=== PATIENT | female | born 1970 | race Caucasian/White ===

== ENCOUNTER 2022-06-30 20:30 | Inpatient (IN) ==
[2022-06-30 21:44] LABS: Partial Thromboplastin Ratio 0.9; Partial Thromboplastin Time 23.8 Seconds (21.0-31.0); Prothrombin Time 10.3 Seconds (9.0-12.0)
[2022-06-30 21:45] LABS: Albumin Globulin Ratio 1.2 (0.9-2); Albumin Level 3.9 gm/dl (3.4-5.0); BUN Creatinine Ratio 23.2 (10-20); Bilirubin,Total 0.5 mg/dl (0.2-1.0); Calcium 9.6 mg/dl (8.5-10.1); Creatinine Clr Calc Pharmacy 68.4 ml/min; Est GFR (African American) 64.9 ml/min; Globulin 3.2 gm/dl (2.5-4.0); Magnesium 1.6 mg/dl (1.7-2.4); Potassium 4.6 mmol/L (3.5-5.1); Total Protein 7.1 gm/dl (6.0-8.3)
[2022-06-30 22:01] LABS: Hematocrit (blood only) 33.5 % (34.1-44.9); Hemoglobin 12.2 g/dl (12.0-16.0); Mean Corpuscular Hemoglobin 36.6 pg (25.0-34.0); Mean Corpuscular Hgb Conc 36.4 g/dL (32.0-36.0); Mean Corpuscular Volume 100.6 fL (80.0-100.0); Mean Platelet Volume 10.7 fL (9.4-12.3); Platelet Count 389 K/uL (130-400); RDW Coefficient of Variation 17.5 % (11.5-14.5); RDW Standard Deviation 51.5 fL (36.4-46.3); Red Blood Count 3.33 M/uL (3.93-5.22); White Blood Count 49.63 K/ul (4.8-10.8)
[2022-06-30] MEDS ORDERED: VANCOMYCIN HCL 2,000 MG in SODIUM CHLORIDE 0.9% 500 ML IV ONE (22:08)
[2022-06-30] MEDS ORDERED: CEFEPIME 2,000 MG/20 ML VIAL IV STA (22:08)
[2022-06-30] MEDS ORDERED: VANCOMYCIN CONSULT ACTIVE PRN (22:08)
[2022-06-30 22:47] LABS: Basophils # (auto) 0.27 K/uL (0-0.2); Basophils % (auto) 0.5 %; Eosinophils # (auto) 0.12 K/uL (0-0.50); Eosinophils % (auto) 0.2 %; Immature Granulocytes # (auto) 0.15 K/uL (0.00-0.02); Immature Granulocytes % (auto) 0.3 %; Lymphocytes # (auto) 39.75 K/uL (1.2-3.4); Lymphocytes % (auto) 80.1 %; Monocytes # (auto) 1.17 K/uL (0.24-0.82); Monocytes % (auto) 2.4 %; Neutrophils # (auto) 8.17 K/uL (1.4-6.5); Neutrophils % (auto) 16.5 %
[2022-06-30] MEDS ORDERED: SODIUM CHLORIDE 0.9% 1000ML 500 ML IV ONE (23:00)
[2022-06-30] MEDS ORDERED: SODIUM CHLORIDE 0.9% 1000ML 1,000 ML IV STA (23:00)
[2022-06-30] MEDS ORDERED: OPTIRAY 300 500mL IV ONE (23:13)
[2022-06-30 23:30] LABS: Adenovirus PCR Not Detected (NotDetected); Bordetella parapertussis PCR Not Detected (NotDetected); Bordetella pertussis PCR Not Detected (NotDetected); Chlamydia pneumoniae PCR Not Detected (NotDetected); Coronavirus 229E PCR Not Detected (NotDetected); Coronavirus CoV-2 (COVID19)PCR Not Detected (NotDetected); Coronavirus HKU1 PCR Not Detected (NotDetected); Coronavirus NL63 PCR Not Detected (NotDetected); Coronavirus OC43PCR Not Detected (NotDetected); Human Metapneumovirus PCR Not Detected (NotDetected); Influenza A PCR Not Detected (NotDetected); Influenza B PCR Not Detected (NotDetected); Mycoplasma pneumoniae PCR Not Detected (NotDetected); Parainfluenza Virus 1 PCR Not Detected (NotDetected); Parainfluenza Virus 2 PCR Not Detected (NotDetected); Parainfluenza Virus 3 PCR Not Detected (NotDetected); Parainfluenza Virus 4 PCR Not Detected (NotDetected); Respiratory Syncytial VirusPCR Not Detected (NotDetected); Rhinovirus/Enterovirus PCR Not Detected (NotDetected)
--- NOTE | 2022-06-30 23:56 | Emergency Department Note ---
Impression & Plan Sepsis, Acidosis, lactic, Acute upper abdominal pain, Shortness of breath ED Provider Note INFORMANT: Patient ED PROVIDER(S): Dino Gloria MD CHIEF COMPLAINT: Abnormal labs PLAN: Disposition: Admitted Condition: Guarded Outpatient prescription management: none Referral: None MEDICAL DECISION MAKING: Patient presented with the complaints noted below. A work-up was initiated. Patient had blood work and blood cultures obtained. Chest x-ray was unremarkable except for's and pleural effusions. COVID ECG showed some tachycardia. The patient had a marked leukocytosis on CBC of 49,000. Lactate was elevated. This is concerning for sepsis in light of this reported E. coli infection. Patient was given cefepime and vancomycin. Due to the swelling and shortness of breath fluids were gently administered until troponin and BNP were back and negative. Patient was given an additional saline bolus. Repeat lactate was improving. Patient did not have any hypotension to suggest septic shock. CT scan of the chest abdomen pelvis was performed. Read is currently pending via [employer]. Patient will need further management in the hospital. Consultation was made with Dr. Chavis hospitalist service. Patient was evaluated in the ER for further management. Triage Nursing notes reviewed and agree them. Vital Signs: reviewed and remarkable for tachycardia Differential diagnosis: Infection, dehydration, metabolic abnormality, hypo/hyperglycemia, electrolyte disturbance, anemia, hypoxia, cardiac sources, intracerebral event, toxicologic, neurologic, as well as other pathologies. Diagnostics interpreted by me: ECG: Sinus tachycardia at 113 bpm. Low voltage QRS. Left atrial enlargement. No ST elevation or depression. No PVCs. Cardiac Monitoring: Cardiac monitoring ordered by me: The patient was placed on continuous cardiac monitoring and observed. It revealed a sinus tachycardic rhythm at 102 beats per minute without ectopy or evidence of dysrhythmia. Imaging studies: Chest x-ray as noted above. CT imaging pending. HPI: The patient 51-year-old transgender female who presents to the Emergency Room with complaints of abnormal labs. This started over the last 2 weeks and symptoms are worsening. The patient also notes the following associated symptoms, shortness of breath, leg swelling, right upper abdominal pain, abdominal distention, dizziness, lack of appetite, irregular bowel movements. Patient notes that x-rays and lab work done as an outpatient. Patient was told that there is fluid in the patient's lung and the white blood cell count was elevated. Patient also had a swab during a vaginal examination and was found to have an E. coli infection. Patient states antibiotics were called in but does not know the name. The patient has found no relieving factors. Current pain is rated as 4/10. Pt denies LOC, headache, fevers, chills, diaphoresis, visual changes, neck pain, chest pain, nausea, vomiting, back pain, melena, hematochezia, urinary symptoms, numbness, weakness, lymphadenopathy, rash, or other complaints. ROS: See above HPI for pertinent positives & negatives. A total of 10 systems reviewed and were otherwise negative. 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 Oropharynx unremarkable. EYES: Normal conjunctiva. Sclera non-icteric. NECK: Inspection normal. Non-tender. Supple. No nuchal rigidity. FROM. No masses. RESPIRATORY: Clear to auscultation. No wheezes. No rales. Normal respiratory effort. CARDIAC: Tachycardic rate. Normal rhythm. No murmurs. No rubs. Extremities warm and well perfused. Pulses equal. No JVD. GI: Soft, mildly distended. Upper tenderness to palpation. No rebound or guarding. No masses. RECTAL: Deferred. MUSCULOSKELETAL: Atraumatic. Chest examination reveals no tenderness. The back is symmetrical on inspection without obvious abnormality. There is no CVA tenderness to palpation. No joint edema. LOWER EXTREMITIES: Calves are equal size bilaterally and non-tender. 2+ edema. No discoloration. NEURO: Normal sensorium. No sensory or motor deficits noted. SKIN: No rash or jaundice noted. Dino Gloria MD Past Med/Surg History Social History Smoking Status: Former smoker Feels Safe at Home: Yes Allergies Allergies Allergy/AdvReac Type Severity Reaction Status Date / Time No Known Allergies Allergy Unverified 06/30/22 23:00 Home Meds Home Medications Medication Instructions Recorded Confirmed Estradiol Injection 100mg/5ml 0.3 ml IM WK 06/30/22 06/30/22 ciprofloxacin HCl 500 mg tablet 500 mg PO Q12 06/30/22 06/30/22 lisinopril 40 mg tablet 40 mg PO QAM 06/30/22 06/30/22 ondansetron 4 mg disintegrating 4 mg PO Q6 PRN Nausea And Vomiting 06/30/22 06/30/22 tablet Results & Data (ED) Vital Signs Vital Signs - 24 hr 06/30/22 20:37 06/30/22 22:25 06/30/22 22:30 Temperature 36.6 C Temperature Source Oral Pulse Rate 107 H Pulse Rate [Right Finger] 102 H Respiratory Rate 18 26 H Respiratory Effort / Characteristics Non-Labored Spontaneous Respiratory Depth Normal Blood Pressure 175/108 H Blood Pressure [Right Arm] 168/102 H Blood Pressure Mean 130 Blood Pressure Mean [Right Arm] 124 Pulse Oximetry 96 95 94 Oxygen Delivery Method Room Air Room Air Room Air Sepsis Recent Fever Within 48 Hours No Sepsis New/Unexplained Change in Mental Status No Sepsis Action Taken by Nursing No Action Required 06/30/22 23:42 Temperature Temperature Source Pulse Rate Pulse Rate [Right Finger] Respiratory Rate 18 Respiratory Effort / Characteristics Non-Labored Spontaneous Respiratory Depth Blood Pressure Blood Pressure [Right Arm] Blood Pressure Mean Blood Pressure Mean [Right Arm] Pulse Oximetry 96 Oxygen Delivery Method Room Air Sepsis Recent Fever Within 48 Hours Sepsis New/Unexplained Change in Mental Status Sepsis Action Taken by Nursing Laboratory Data Result diagrams: 06/30/22 20:45 06/30/22 20:45 Lab Results 06/30/22 06/30/22 06/30/22 Range/Units 20:45 20:45 20:45 WBC 49.63 H* (4.8-10.8) K/ul RBC 3.33 L (3.93-5.22) M/uL Hgb 12.2 (12.0-16.0) g/dl Hct 33.5 L (34.1-44.9) % MCV 100.6 H (80.0-100.0) fL MCH 36.6 H (25.0-34.0) pg MCHC 36.4 H (32.0-36.0) g/dL RDW Std Deviation 51.5 H (36.4-46.3) fL RDW Coeff of Diane 17.5 H (11.5-14.5) % Plt Count 389 (130-400) K/uL MPV 10.7 (9.4-12.3) fL Immature Gran % (Auto) 0.3 % Neut % (Auto) 16.5 % Lymph % (Auto) 80.1 % [place] % (Auto) 2.4 % Eos % (Auto) 0.2 % Baso % (Auto) 0.5 % Neut # (Auto) 8.17 H (1.4-6.5) K/uL Lymph # (Auto) 39.75 H (1.2-3.4) K/uL [place] # (Auto) 1.17 H (0.24-0.82) K/uL Eos # (Auto) 0.12 (0-0.50) K/uL Baso # (Auto) 0.27 H (0-0.2) K/uL Immature Gran # (Auto) 0.15 H (0.00-0.02) K/uL PT 10.3 (9.0-12.0) Seconds INR 1.0 (0.9-1.1) APTT 23.8 (21.0-31.0) Seconds PTT Ratio 0.9 Sodium 135 L (136-145) mmol/L Potassium 4.6 (3.5-5.1) mmol/L Chloride 98 (98-107) mmol/L Carbon Dioxide 22 (21-32) mmol/L Anion Gap 15 H (3-11) BUN 26 H (6-23) mg/dl Creatinine 1.12 (0.6-1.2) mg/dl Est Cr Clr Drug Dosing 68.4 ml/min Est GFR ( Amer) 64.9 ml/min Est GFR (Non-Af Amer) 56.0 ml/min BUN/Creatinine Ratio 23.2 H (10-20) Glucose 85 (70-99(Fasting)) mg/dl Lactate (0.4-2.0) mmol/L Calcium 9.6 (8.5-10.1) mg/dl Magnesium 1.6 L (1.7-2.4) mg/dl Total Bilirubin 0.5 (0.2-1.0) mg/dl AST 38 (13-39) U/L ALT 14 (7-52) U/L Alkaline Phosphatase 68 (34-104) U/L Troponin I High Sens (0-14) pg/ml B-Natriuretic Peptide (0-100) pg/ml Total Protein 7.1 (6.0-8.3) gm/dl Albumin 3.9 (3.4-5.0) gm/dl Globulin 3.2 (2.5-4.0) gm/dl Albumin/Globulin Ratio 1.2 (0.9-2) Adenovirus (PCR) (NotDetected) B. pertussis DNA (PCR) (NotDetected) B.parapertussis DNA PCR (NotDetected) C. pneumoniae DNA (PCR) (NotDetected) Coronavirus OC43 (PCR) (NotDetected) Coronavirus HKU1 (PCR) (NotDetected) Coronavirus 229E (PCR) (NotDetected) SARS-CoV-2 (PCR) (NotDetected) Coronavirus NL63 (PCR) (NotDetected) Human Metapneumovir PCR (NotDetected) Influenza Type A (PCR) (NotDetected) Influenza Type B (PCR) (NotDetected) M. pneumoniae (PCR) (NotDetected) Parainfluenza 1 (PCR) (NotDetected) Parainfluenza 2 (PCR) (NotDetected) Parainfluenza 3 (PCR) (NotDetected) Parainfluenza 4 (PCR) (NotDetected) RSV (PCR) (NotDetected) Entero/Rhino (PCR) (NotDetected) 06/30/22 06/30/22 06/30/22 Range/Units 22:24 22:24 23:08 WBC (4.8-10.8) K/ul RBC (3.93-5.22) M/uL Hgb (12.0-16.0) g/dl Hct (34.1-44.9) % MCV (80.0-100.0) fL MCH (25.0-34.0) pg MCHC (32.0-36.0) g/dL RDW Std Deviation (36.4-46.3) fL RDW Coeff of Diane (11.5-14.5) % Plt Count (130-400) K/uL MPV (9.4-12.3) fL Immature Gran % (Auto) % Neut % (Auto) % Lymph % (Auto) % [place] % (Auto) % Eos % (Auto) % Baso % (Auto) % Neut # (Auto) (1.4-6.5) K/uL Lymph # (Auto) (1.2-3.4) K/uL [place] # (Auto) (0.24-0.82) K/uL Eos # (Auto) (0-0.50) K/uL Baso # (Auto) (0-0.2) K/uL Immature Gran # (Auto) (0.00-0.02) K/uL PT (9.0-12.0) Seconds INR (0.9-1.1) APTT (21.0-31.0) Seconds PTT Ratio Sodium (136-145) mmol/L Potassium (3.5-5.1) mmol/L Chloride (98-107) mmol/L Carbon Dioxide (21-32) mmol/L Anion Gap (3-11) BUN (6-23) mg/dl Creatinine (0.6-1.2) mg/dl Est Cr Clr Drug Dosing ml/min Est GFR ( Amer) ml/min Est GFR (Non-Af Amer) ml/min BUN/Creatinine Ratio (10-20) Glucose (70-99(Fasting)) mg/dl Lactate 4.7 H* (0.4-2.0) mmol/L Calcium (8.5-10.1) mg/dl Magnesium (1.7-2.4) mg/dl Total Bilirubin (0.2-1.0) mg/dl AST (13-39) U/L ALT (7-52) U/L Alkaline Phosphatase (34-104) U/L Troponin I High Sens 7.4 (0-14) pg/ml B-Natriuretic Peptide (0-100) pg/ml Total Protein (6.0-8.3) gm/dl Albumin (3.4-5.0) gm/dl Globulin (2.5-4.0) gm/dl Albumin/Globulin Ratio (0.9-2) Adenovirus (PCR) Not Detected (NotDetected) B. pertussis DNA (PCR) Not Detected (NotDetected) B.parapertussis DNA PCR Not Detected (NotDetected) C. pneumoniae DNA (PCR) Not Detected (NotDetected) Coronavirus OC43 (PCR) Not Detected (NotDetected) Coronavirus HKU1 (PCR) Not Detected (NotDetected) Coronavirus 229E (PCR) Not Detected (NotDetected) SARS-CoV-2 (PCR) Not Detected (NotDetected) Coronavirus NL63 (PCR) Not Detected (NotDetected) Human Metapneumovir PCR Not Detected (NotDetected) Influenza Type A (PCR) Not Detected (NotDetected) Influenza Type B (PCR) Not Detected (NotDetected) M. pneumoniae (PCR) Not Detected (NotDetected) Parainfluenza 1 (PCR) Not Detected (NotDetected) Parainfluenza 2 (PCR) Not Detected (NotDetected) Parainfluenza 3 (PCR) Not Detected (NotDetected) Parainfluenza 4 (PCR) Not Detected (NotDetected) RSV (PCR) Not Detected (NotDetected) Entero/Rhino (PCR) Not Detected (NotDetected) 06/30/22 07/01/22 Range/Units 23:08 00:16 WBC (4.8-10.8) K/ul RBC (3.93-5.22) M/uL Hgb (12.0-16.0) g/dl Hct (34.1-44.9) % MCV (80.0-100.0) fL MCH (25.0-34.0) pg MCHC (32.0-36.0) g/dL RDW Std Deviation (36.4-46.3) fL RDW Coeff of Diane (11.5-14.5) % Plt Count (130-400) K/uL MPV (9.4-12.3) fL Immature Gran % (Auto) % Neut % (Auto) % Lymph % (Auto) % [place] % (Auto) % Eos % (Auto) % Baso % (Auto) % Neut # (Auto) (1.4-6.5) K/uL Lymph # (Auto) (1.2-3.4) K/uL [place] # (Auto) (0.24-0.82) K/uL Eos # (Auto) (0-0.50) K/uL Baso # (Auto) (0-0.2) K/uL Immature Gran # (Auto) (0.00-0.02) K/uL PT (9.0-12.0) Seconds INR (0.9-1.1) APTT (21.0-31.0) Seconds PTT Ratio Sodium (136-145) mmol/L Potassium (3.5-5.1) mmol/L Chloride (98-107) mmol/L Carbon Dioxide (21-32) mmol/L Anion Gap (3-11) BUN (6-23) mg/dl Creatinine (0.6-1.2) mg/dl Est Cr Clr Drug Dosing ml/min Est GFR ( Amer) ml/min Est GFR (Non-Af Amer) ml/min BUN/Creatinine Ratio (10-20) Glucose (70-99(Fasting)) mg/dl Lactate 4.0 H* (0.4-2.0) mmol/L Calcium (8.5-10.1) mg/dl Magnesium (1.7-2.4) mg/dl Total Bilirubin (0.2-1.0) mg/dl AST (13-39) U/L ALT (7-52) U/L Alkaline Phosphatase (34-104) U/L Troponin I High Sens (0-14) pg/ml B-Natriuretic Peptide 19 (0-100) pg/ml Total Protein (6.0-8.3) gm/dl Albumin (3.4-5.0) gm/dl Globulin (2.5-4.0) gm/dl Albumin/Globulin Ratio (0.9-2) Adenovirus (PCR) (NotDetected) B. pertussis DNA (PCR) (NotDetected) B.parapertussis DNA PCR (NotDetected) C. pneumoniae DNA (PCR) (NotDetected) Coronavirus OC43 (PCR) (NotDetected) Coronavirus HKU1 (PCR) (NotDetected) Coronavirus 229E (PCR) (NotDetected) SARS-CoV-2 (PCR) (NotDetected) Coronavirus NL63 (PCR) (NotDetected) Human Metapneumovir PCR (NotDetected) Influenza Type A (PCR) (NotDetected) Influenza Type B (PCR) (NotDetected) M. pneumoniae (PCR) (NotDetected) Parainfluenza 1 (PCR) (NotDetected) Parainfluenza 2 (PCR) (NotDetected) Parainfluenza 3 (PCR) (NotDetected) Parainfluenza 4 (PCR) (NotDetected) RSV (PCR) (NotDetected) Entero/Rhino (PCR) (NotDetected) Administered Medications Discontinued Medications Vancomycin HCl 2,000 mg/ (Sodium Chloride) 540 mls @ 200 mls/hr IV NOW ONE Stop: 07/01/22 00:49 Last Admin: 07/01/22 00:07 Dose: 200 mls/hr Documented By: STEVE Cefepime HCl (Maxipime) 2,000 mg in 20 mls @ 5 mls/min IV NOW STA; Protocol Stop: 06/30/22 22:11 Last Admin: 06/30/22 22:36 Dose: 5 mls/min Documented By: DESTIN Sodium Chloride (Nss 1000ml) 500 mls @ 999 mls/hr IV .Q31M ONE Stop: 06/30/22 23:30 Last Infusion: 07/01/22 00:38 Dose: 0 mls/hr Documented By: Admin: 07/01/22 00:06 Dose: 999 mls/hr Documented By: STEVE Ioversol (Optiray 300 500ml) 111 ml IV ONCE ONE Stop: 06/30/22 23:14 Last Admin: 06/30/22 23:13 Dose: 111 ml Documented By: DARCIE Discharge Plan Visit Data Chief Complaint: Referred by Doctor Stated Complaint: SOB, REF BY , FLUID IN LUNGS ED Provider: Dino Gloria Discharge Problem: Sepsis, Acidosis, lactic, Acute upper abdominal pain, Shortness of breath Forms Stand Alone Forms: My [employer] Prescriptions Prescriptions: No Action ciprofloxacin HCl 500 mg tablet 500 mg PO Q12 Rx Instructions: ordered 06/20/22 take for 10 days lisinopril 40 mg Tablet 40 mg PO QAM ondansetron 4 mg tablet,disintegrating 4 mg PO Q6 PRN (Reason: Nausea And Vomiting) Estradiol Injection 100mg/5ml 0.3 ml IM WK Referrals Referrals: PCP,NO [Primary Care Provider] -
[2022-07-01] MEDS ORDERED: SODIUM CHLORIDE 0.9% 1000ML 1,000 ML IV ONE (00:59)
--- NOTE | 2022-07-01 03:33 | History and Physical Report ---
DATE OF ADMISSION: 07/01/2022. CHIEF COMPLAINT: Dizziness, weakness. HISTORY OF PRESENT ILLNESS: A 51-year-old transgender male to female status post breast implants and vaginoplasty about a year ago, history of hypertension, who comes because of not feeling well, fatigued, weak, dizziness, nausea, shortness of breath going on for a couple of weeks, progressively getting worse, so she came here. She is hemodynamically stable. White count is 49. She follows at [place]. Seems recent white count was 17. They did a vaginal swab which showed E. coli and was treated with antibiotics. She says she did not finish the course and looks like she is on Cipro. As she is not feeling well, she came here. Chest x-ray shows possible raised diaphragm on the right side. The patient is resting comfortably. She was able to speak in full sentence, but she complains of shortness of breath. She says she can walk about half a block. She has some swelling in the legs. Denies any headache, occasionally has neck pain. No blurred visions, no earache, no runny nose, no sore throat, no cough, no difficulty swallowing. Her appetite is down last few days. Denies any chest pain. Has nausea. No vomiting. After eating only a small amount of food, she feels full. Denies any abdominal pain. Somewhat constipated. No blood in the stools or black stools. Micturating okay. ALLERGIES: No known drug allergies. PAST MEDICAL HISTORY: As mentioned above. PAST SURGICAL HISTORY: Breast implants, vaginoplasty, tummy tuck. MEDICATIONS: The patient is on Cipro 500 mg p.o. b.i.d., estradiol injection IM weekly, lisinopril 40 mg p.o. daily, Zofran 4 mg p.o. q. 6 hours p.r.n. FAMILY HISTORY: Significant for mother has CHF. SOCIAL HISTORY: Remote history of smoking. Alcohol, drinks 3 times a week. No drug use. REVIEW OF SYSTEMS: As per HPI. Rest of the review of systems is negative. PHYSICAL EXAMINATION: GENERAL: The patient is of moderate build, not in acute distress. VITAL SIGNS: Temperature 36.6, pulse 94, respiratory rate 16, blood pressure 151/92, oxygen 96% on room air. HEENT: Pupils equal, round, and reactive to light. Oral mucosa moist. NECK: No JVD, no neck masses. CARDIOVASCULAR: S1 and S2 heard. Regular rate and rhythm. No murmur, no gallop. RESPIRATORY SYSTEM: Normal AP diameter. No accessory muscle use. No wheezing, no crackles. ABDOMEN: Soft, bowel sounds present. Somewhat stiff, nontender. MANAGER VALIDATION: Cranial nerves II-XII grossly intact, nonfocal. EXTREMITIES: Mild pedal edema present, no erythema seen. LABORATORY DATA: WBC 49.6, hemoglobin 12.2, hematocrit 33.5, platelets 389. PT 10.3, INR 1, APTT 23.8. Sodium 135, potassium 4.6, chloride 98, bicarbonate 22, BUN 26, creatinine 1.1, serum glucose 85. Lactate was 4.7, repeat is 4, calcium 9.6, magnesium 1.6, total bilirubin 0.5, AST 38, ALT 14, alkaline phosphatase 68. Troponin 1 high sensitivity 7.4. BNP 19. [employer] negative. IMAGING DATA: Chest x-ray, raised right-sided diaphragm. CT chest, no obvious PE, no right heart strain. Mediastinal lymphadenopathy, no loculated collection. Findings may represent an infectious phlegmon, a mediastinitis, a ruptured hemorrhagic mass, or infiltrative inflammatory or neoplastic process. Bilateral small pleural effusions. CT abdomen and pelvis with contrast, extensive infiltration of the mesenteric fat. No focal mass. No loculated collections. No enlarged lymph nodes. Elevated right hemidiaphragm. Posterior antecolic Silvana-en-Y gastric bypass. No bowel obstructions, no free air. EKG: Sinus tachycardia at a rate of 113, possible left atrial enlargement. ASSESSMENT AND PLAN: This 51-year-old female presents with shortness of breath, dizziness, weakness. 1. Shortness of breath, dizziness, weakness: Elevated lactic acid, elevated white count of 49.6. Lactate initially was 4.7, repeat is 4. Recently had vaginal swab that showed E. coli. ER has empirically started on vancomycin and cefepime, which will be continued. Follow the cultures.Ordered peripheral smear for leukocytosis and follow the results. Continue IV fluids. Closely monitor in tele floor. Follow the repeat lactic acid level. Follow the hemodynamics. Follow the final report of the CT of chest, and CT abdomen and pelvis. 2. Hypomagnesemia: Will replace. 3. Transgender, male to female. 4. History of hypertension: Continue on lisinopril withholding parameters. 5. Deep venous thrombosis prophylaxis: Will place her on Lovenox. DISPOSITION: Closely monitor in the tele floor. Level 1 full code. Expect to discharge home and follow up with family doctor. Job ID: [id number] [facility]
[2022-07-01] MEDS ORDERED: POLYETHYLENE (MIRALAX) 17 GM PACK PO PRN (04:57)
[2022-07-01] MEDS ORDERED: ACETAMINOPHEN 325 MG TAB PO PRN (04:57)
[2022-07-01] MEDS ORDERED: NITROGLYCERIN SL 0.4 MG/TAB TAB SL PRN (04:57)
[2022-07-01] MEDS: SODIUM CHLORIDE 0.9% 1000ML 1,000 ML IV SCH ×2 (05:50→20:52)
[2022-07-01] MEDS: MAGNESIUM SULFATE / D5W 1 GM/100 ML BAG IV SCH ×2 (05:50→07:50)
[2022-07-01 05:54] LABS: BUN Creatinine Ratio 24.2 (10-20); Calcium 8.5 mg/dl (8.5-10.1); Creatinine Clr Calc Pharmacy 80.6 ml/min; Est GFR (African American) 79.3 ml/min; Est GFR (Non-African American) 68.4 ml/min; Magnesium 1.6 mg/dl (1.7-2.4); Potassium 4.4 mmol/L (3.5-5.1)
[2022-07-01 06:18] LABS: Hematocrit (blood only) 32.3 % (34.1-44.9); Hemoglobin 10.9 g/dl (12.0-16.0); Mean Corpuscular Hemoglobin 33.6 pg (25.0-34.0); Mean Corpuscular Hgb Conc 33.7 g/dL (32.0-36.0); Mean Corpuscular Volume 99.7 fL (80.0-100.0); Mean Platelet Volume 10.2 fL (9.4-12.3); Nucleated RBC # (auto) 0.02 K/uL (0-0); Platelet Count 337 K/uL (130-400); RDW Coefficient of Variation 17.1 % (11.5-14.5); RDW Standard Deviation 51.2 fL (36.4-46.3); Red Blood Count 3.24 M/uL (3.93-5.22)
[2022-07-01 06:37] LABS: Basophils # (auto) 0.27 K/uL (0-0.2); Basophils % (auto) 0.6 %; Eosinophils # (auto) 0.19 K/uL (0-0.50); Eosinophils % (auto) 0.4 %; Immature Granulocytes # (auto) 0.13 K/uL (0.00-0.02); Immature Granulocytes % (auto) 0.3 %; Lymphocytes # (auto) 36.77 K/uL (1.2-3.4); Lymphocytes % (auto) 78.4 %; Monocytes # (auto) 1.33 K/uL (0.24-0.82); Monocytes % (auto) 2.8 %; Neutrophils # (auto) 8.21 K/uL (1.4-6.5); Neutrophils % (auto) 17.5 %; Rouleaux 1+
--- NOTE | 2022-07-01 06:58 | CT Scan Report ---
CHEST CTA for PULMONARY ARTERIES CT DOSE: HISTORY: Shortness of breath. TECHNIQUE: Multiaxial CT images of the chest were performed following the intravenous administration of contrast to evaluate the pulmonary arteries. Maximal intensity projection images were also obtaine d. A dose lowering technique was utilized adhering to the principles of ALARA. COMPARISON STUDY: None. FINDINGS: Please refer to same day abdomen and pelvis CT for further evaluation of the abdominal stru ctures. Normal caliber thoracic aorta with no evidence for dissection. The heart is normal in size. T here are small to moderate bilateral pleural effusions. There is mediastinal lymphadenopathy. Soft ti ssue thickening with lymphadenopathy within the anterior mediastinum and right cardiophrenic recess. Dominant lymph node measures 3.3 cm. This results in mild mass effect along the right heart. Normal c aliber esophagus. Suboptimal opacification of the pulmonary arteries due to the timing of contrast. H owever, no definite filling defects within the pulmonary arteries to suggest a pulmonary embolus. The re are mildly enlarged bilateral internal mammary lymph nodes. Bilateral breast implants are noted. N o suspicious lytic or blastic osseous lesions. There is mild elevation right hemidiaphragm. Linear de nsity within the right lower lobe favors compressive atelectasis from the elevated right hemidiaphrag m and pleural effusion. No pneumothorax. There is a punctate calcified granuloma within the left lowe r lobe. There is mild subsegmental atelectasis is seen within the left lower lobe. There are few punc bryant calcified granulomas within the right lower lobe. Partially calcified subcarinal lymph node. Mil dly enlarged distal paraesophageal lymph nodes are noted. IMPRESSION: 1. No evidence for pulmonary embolus. 2. Small to moderate bilateral pleural effusions with subsegmental atelectasis within the lung bases. 3. Mediastinal lymphadenopathy and internal mammary lymphadenopathy with abnormal soft tissue density within the mediastinum resulting in mild mass effect along the right heart border. This could repres ent infectious mediastinitis or neoplastic process. ACT 112: Negative or not required by law. Electronically signed by: Faustino Kaiser M.D. 07/01/2022 6:57 AM
--- NOTE | 2022-07-01 07:12 | CT Scan Report ---
ABDOMEN AND PELVIS CT WITH IV CONTRAST CT DOSE: 1397.28 mGy.cm HISTORY: Right abd pain, WBC 49K Cr 1.1 TECHNIQUE: Multiaxial CT images of the abdomen and pelvis were performed following the use of intrave nous contrast. A dose lowering technique was utilized adhering to the principles of ALARA. COMPARISON STUDY: None. FINDINGS: Please refer to same day chest CT for further evaluation of the lung bases. No pneumoperito neum. No pneumatosis. No suspicious lytic or blastic osseous lesions. There is a right L5 pars defect . There is diffuse subcutaneous edema with skin thickening within the anterior abdominal wall. Tiny f at-containing left inguinal hernia is noted. A 7.8 cm subcutaneous lipoma within the left gluteal reg ion. Mild bladder wall thickening. The uterus is surgically absent. Severe hepatic steatosis. No defi nite hepatic masses. The main portal vein is patent. The gallbladder, pancreas, spleen, and adrenal g lands unremarkable. There is moderate right perinephric fat stranding/soft tissue density. There are few right perinephric soft tissue nodules with the largest measuring 16 mm. The left kidney enhances normally. No hydronephrosis. There is bilateral urothelial thickening within the renal collecting sys tems and ureters. Status post gastric bypass. Trace ascites. There is a small peripheral enhancing fl uid collection within the mid pelvis best seen on image 415 which measures 4.7 x 1.9 cm. This could r epresent a small abscess. Multiple mildly thickened loops of large and small bowel seen throughout th e abdomen. No dilated loops of bowel to suggest an obstruction. The appendix is identified and fills with gas. This is normal in caliber. Small collection of gas within the right side the abdomen on siria ge 269 which is indeterminate but could be within a bowel loop. A small focus of extraluminal gas is not excluded. There are severe mesenteric fat stranding seen throughout the abdomen and pelvis. There is also mild mesenteric edema/fluid. There is thickening of the bilateral peritoneal linings. Findin gs suggest a severe peritonitis/mesenteritis. Elevated right hemidiaphragm. Mildly enlarged bilateral external iliac lymph nodes with the largest on the right measuring 1.5 cm. There are mildly enlarged gastrohepatic and upper retroperitoneal lymph nodes with the largest on the right measuring 2.0 cm b est seen on image 201. There is also severe omental fat stranding. IMPRESSION: 1. Severe fat stranding and edema seen throughout the mesentery as well as thickening of the periton eal linings and omentum. This could be due to a severe peritonitis/mesenteritis versus a neoplastic p rocess. 2. There is right greater the left perinephric fat stranding with a few small right perinephric nodul es as described above. Again, this could be due to a severe infectious process or possibly a neoplast ic process such as lymphoma. 3. Trace ascites. There is a small area of loculated fluid within the deep pelvis measuring 4.7 x 1.9 cm. This could represent a small developing abscess. 4. Multiple areas of mild bowel wall thickening involving the large and small bowel. This could be re active or represent a nonspecific enterocolitis. 5. Small focus of gas within the right side the abdomen which is indeterminate and could be within a loop of bowel. A small focus of extraluminal gas is not excluded. [address] follow-up recommen ded to ensure stability. 6. Severe hepatic steatosis. 7. Diffuse urothelial thickening within the renal collecting systems and ureters. 8. Please refer the same day chest CT for further evaluation of the lung bases. ACT 112: Negative or not required by law. Electronically signed by: Faustino Kaiser M.D. 07/01/2022 7:10 AM
[2022-07-01] MEDS: lisinopril 40 MG TAB PO SCH (07:57)
[2022-07-01] MEDS: ENOXAPARIN INJ 40 MG/0.4 ML SYR SQ SCH (07:57)
--- NOTE | 2022-07-01 08:06 | XRay Report ---
XR chest 1V portable HISTORY: Shortness of breath. COMPARISON: None. FINDINGS: No pneumothorax. Small bilateral pleural effusions. Right basilar linear densities favor caballero bsegmental atelectasis. No evidence for pulmonary edema. The heart is normal in size. IMPRESSION: Small bilateral pleural effusions with bibasilar linear densities suggesting subsegmental atelectasis ACT 112: Negative or not required by law. Electronically signed by: Faustino Kaiser M.D. 07/01/2022 8:05 AM
[2022-07-01 09:39] LABS: Appearance Urine Turbid (Clear); Bacteria Urine Automated Negative (Negative); Bilirubin Urine Negative (Negative); Blood Urine Negative (Negative); Color Urine Yellow; Epithelial Cell Urine Auto 20-30 /lpf (0-5); Glucose Urine UA Negative (Negative); Ketones Urine Trace (Negative); Leukocyte Esterase Urine Trace (Negative); Nitrite Urine Negative (Negative); Protein Urine 1+ (Negative); RBC Urine Automated 0-4 /hpf (0-4); Specific Gravity Urine 1.045 (1.000-1.030); Urobilinogen Urine Negative (Negative)
[2022-07-01] MEDS: CEFEPIME 2,000 MG in SYRINGE 0 ML IV SCH ×2 (10:07→21:18)
--- NOTE | 2022-07-01 10:40 | Pharmacy Report ---
Pharmacy PK ABX Note - Date of Service July 01, 2022 - Assessment and Plan Assessment 51 year old F receiving vancomycin and cefepime empirically with possible genitourinary source. Pertinent microbiologic data includes: per provider note, recent vaginal swab that showed E. coli. Day # 1 of antimicrobial therapy. Plan Vancomycin * Loading dose: 2000 mg IV x 1 administered today @0000 * Maintenance dose: 1000 mg IV every 12 hours starting today @1000 * Regimen is predicted to achieve target AUC/CHAI of 400-600 mg/L.hr * Trough level ordered for: 07/02/22 @0930 Pharmacy will continue to follow and will adjust dose/frequency as necessary. Thank you. Pharmacy has transitioned to AUC monitoring for vancomycin. AUC/CHAI is the preferred PK/PD target and is associated with decreased risk of nephrotoxicity compared to traditional trough targets.
--- NOTE | 2022-07-01 10:59 | Cardiology Consultation ---
Date of Consultation July 01, 2022 Assessment & Plan (1) Mediastinal mass: (2) Leukocytosis: Plan 51-year-old patient mated with leukocytosis and CT evidence of mediastinal lymphadenopathy and soft tissue density. Concerns regarding possible right ventricular impingement. Resting 2D transthoracic echocardiogram demonstrates normal biventricular function and wall motion. No evidence of significant cardiac compression or tamponade physiology. Further evaluation of mediastinal mass and lymphadenopathy as per internal medicine and pulmonology. History of Present Illness Reason for Consultation: Mediastinal mass-effect on heart. Requesting Physician: Dr. Chavis Attending Physician: Nelson Schneider MD History of Present Illness 51-year-old transgender male to female patient presents to the ER with symptoms of fatigue, weakness, dizziness, and nausea. Elevated white blood cell count noted prompting ER evaluation. CTA of the chest performed demonstrating mediastinal lymphadenopathy and internal mammary lymphadenopathy with abnormal soft tissue density resulting in mild mass-effect along the right heart border. Cardiology consultation requested for further evaluation. Patient denies chest pain or unusual shortness of breath. No palpitations, lightheadedness, or dizziness. Denies orthopnea, PND, or lower extremity edema. No personal history of coronary disease, congestive heart failure, rheumatic fever as a child, or diabetes. Allergies Allergy/AdvReac Type Severity Reaction Status Date / Time No Known Allergies Allergy Unverified 06/30/22 23:00 Home Medications Medication Instructions Recorded Confirmed Type Estradiol Injection 100mg/5ml 0.3 ml IM WK 06/30/22 06/30/22 History ciprofloxacin HCl 500 mg tablet 500 mg PO Q12 06/30/22 06/30/22 History lisinopril 40 mg tablet 40 mg PO QAM 06/30/22 06/30/22 History ondansetron 4 mg disintegrating 4 mg PO Q6 PRN Nausea And Vomiting 06/30/22 06/30/22 History tablet Patient History Social History Smoking Status: Former smoker Second Hand Exposure: No; Do You Dip or Chew Tobacco: No; Tobacco Cessation Education Requested by Patient: No Hx Alcohol Use: Yes Hx Substance Use: No Communication Ability: Effective Clamshell Engineer Required: No Beliefs That Will Affect Care: None Current Living Situation: Alone Other Information That Helps Us Care for You: No Feels Safe at Home: Yes Safety Concerns: Feels Safe At This Time Assistive Devices: None Review of Systems Review of Systems: All systems reviewed & are unremarkable except as noted in Subjective Physical Exam Constitutional: well nourished; no acute distress Respiratory: no respiratory distress, no retractions and does not use accessory muscles Auscultation: no crackles, no rales and no rhonchi Cardiovascular: Rate/Rhythm: regular rate and regular rhythm Heart Sounds: normal S1 and normal S2; no murmur Vessels: radial pulses present; no JVD and no carotid bruit Extremities: no edema Gastrointestinal (Abdomen): Inspection/Auscultation: abdomen not distended and no abdominal edema Percussion/Palpation: abdomen soft; abdomen nontender, no guarding and abdomen not rigid Neurologic: CN's II-XI intact bilaterally and moves all extremities; no focal motor deficits Results & Data ([facility]) Vital Signs (Past 12 Hours) Vital Signs Temp Pulse Pulse Resp BP BP BP 07/01/22 09:05 07/01/22 08:43 36.5 C 95 H 16 153/84 H 07/01/22 05:15 07/01/22 05:01 36.7 C 94 H 22 150/91 H 07/01/22 04:47 94 H 18 158/97 H 07/01/22 03:00 94 H 18 158/97 H 07/01/22 01:00 94 H 16 151/92 H 06/30/22 23:42 18 Pulse Ox O2 Del Method 07/01/22 09:05 Room Air 07/01/22 08:43 94 Room Air 07/01/22 05:15 Room Air 07/01/22 05:01 96 Room Air 07/01/22 04:47 95 Room Air 07/01/22 03:00 95 Room Air 07/01/22 01:00 96 Room Air 06/30/22 23:42 96 Room Air
[2022-07-01] MEDS: VANCOMYCIN HCL 1,000 MG in SODIUM CHLORIDE 0.9% 250 ML IV SCH ×2 (11:43→21:18)
--- NOTE | 2022-07-01 12:16 | Pulmonary Consultation ---
Date of Consultation July 01, 2022 Assessment & Plan (1) Anterior mediastinal lymphadenopathy: (2) Night sweats: (3) Pleural effusion: (4) Abnormal CT of the abdomen: (5) Pelvic abscess: Plan I suspect the patient's clinical findings, imaging and symptoms are secondary to a systemic process such as systemic infection or malignancy. Infection is higher in the differential at this time given the acuity of symptoms. I am concerned of disseminated tuberculosis or disseminated fungal infection. Urine histoplasmosis antigen and coccidiomycosis antibodies ordered. QuantiFERON gold ordered. Patient also appears to have a pelvic abscess and I would recommend drainage. General surgery consult ordered, but the patient may need interventional radiology. I discussed this with hospitalist and recommended transfer to a tertiary center for interventional radiology evaluation and infectious disease evaluation. Pleural effusions at this time are not amenable to thoracentesis. The right pleural effusion does appear to have somewhat of a thickened pleural rind and is possibly loculated. The anterior mediastinal mass is not accessible via bronchoscopy. There does not appear to be mass-effect on the heart. Would also recommend gastrointestinal consultation given the CT abdomen findings. Gastric lymphoma versus infection such as gastric tuberculosis remains possible. As noted above, malignancy certainly is on the differential with the possibility of lymphoma. Excisional lymph node biopsy would be required and FNA would likely not be adequate. Agree with IV antibiotics. Airborne isolation ordered. Thank you for the consult. We will continue to follow with you if the patient remains at [facility]. History of Present Illness Reason for Consultation: Mediastinal lymphadenopathy. Attending Physician: Nelson Schneider MD History of Present Illness 51-year-old patient with a past medical history of gender reassignment surgery approximately 1.5 years ago in [place] who transition from male to female, prior history of tobacco abuse and hypertension who presented to the hospital due to increasing lethargy and shortness of breath. Patient relates she has been having night sweats. 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 She has traveled to [place] for gender reassignment surgery last year. She was also recently in [place]. She notes that she drinks alcohol of a moderate degree. Denies any history of cancer. Denies any significant cough. Does endorse shortness of breath with exertion. Some mild abdominal discomfort. CT chest and abdomen reviewed. CT chest revealed anterior mediastinal lymphadenopathy. CT abdomen reviewed mesenteritis and fluid collection in the pelvis that appears to be a possible abscess. Labs significant for significant lymphocytosis and leukocytosis. Patient denies any high risk sexual activity. No IV or inhaled drug abuse. No pets or exotic pet exposures. Allergies Allergy/AdvReac Type Severity Reaction Status Date / Time No Known Allergies Allergy Unverified 06/30/22 23:00 Home Medications Medication Instructions Recorded Confirmed Type Estradiol Injection 100mg/5ml 0.3 ml IM WK 06/30/22 06/30/22 History ciprofloxacin HCl 500 mg tablet 500 mg PO Q12 06/30/22 06/30/22 History lisinopril 40 mg tablet 40 mg PO QAM 06/30/22 06/30/22 History ondansetron 4 mg disintegrating 4 mg PO Q6 PRN Nausea And Vomiting 06/30/22 06/30/22 History tablet Patient History Medical History (Updated 07/01/22 @ 12:12 by Sergio Jackson MD) Abnormal CT of the abdomen Anterior mediastinal lymphadenopathy Night sweats Pelvic abscess Pleural effusion Social History Smoking Status: Former smoker Second Hand Exposure: No; Do You Dip or Chew Tobacco: No; Tobacco Cessation Education Requested by Patient: No Hx Alcohol Use: Yes Hx Substance Use: No Communication Ability: Effective Mcat Tutor Required: No Beliefs That Will Affect Care: None Current Living Situation: Alone Other Information That Helps Us Care for You: No Feels Safe at Home: Yes Safety Concerns: Feels Safe At This Time Assistive Devices: None Review of Systems Review of Systems: All systems reviewed & are unremarkable except as noted in HPI & below Physical Exam Physical Exam: Constitutional: Patient appears to be of their stated age. Patient is in no apparent distress. Patient is well-developed. Eyes: Pupils are equal round and reactive to light. Conjunctivae are normal. Anicteric sclera. Ears nose, mouth and throat: Deferred. Neck: Trachea is midline. Visual inspection is normal. Respiratory: Clear to auscultation bilaterally. No use of accessory muscles. No significant clubbing noted. Cardiovascular: Regular rate and rhythm. No murmurs. No edema. Gastrointestinal: Normal bowel sounds, soft, nontender and nondistended. Numerous well-healed incisions noted. Musculoskeletal: No cyanosis. Patient is able to move all extremities. Strength is 5 out of 5 in the upper and lower extremities. Skin: No rashes, warm dry and intact. Neurologic: No obvious focal neurological deficits seen. Psychiatric: Alert and oriented x3 with a euthymic affect. Results & Data Results & Data ([facility]) Vital Signs (Past 12 Hours) Vital Signs Temp Pulse Pulse Resp BP BP BP 07/01/22 11:49 36.6 C 104 H 16 138/81 07/01/22 07:00 88 07/01/22 09:05 07/01/22 08:43 36.5 C 95 H 16 153/84 H 07/01/22 05:15 07/01/22 05:01 36.7 C 94 H 22 150/91 H 07/01/22 04:47 94 H 18 158/97 H 07/01/22 03:00 94 H 18 158/97 H 07/01/22 01:00 94 H 16 151/92 H Pulse Ox O2 Del Method 07/01/22 11:49 98 Room Air 07/01/22 07:00 07/01/22 09:05 Room Air 07/01/22 08:43 94 Room Air 07/01/22 05:15 Room Air 07/01/22 05:01 96 Room Air 07/01/22 04:47 95 Room Air 07/01/22 03:00 95 Room Air 07/01/22 01:00 96 Room Air PG Care Time/CCT Total # of Minutes Spent Total Time Spent with Patient: Total time spent is greater than 50% in coordination of care (as documented) at patient's floor/unit and/or counseling patient: Coding Level of Care Code 25902 Initial Inpt Care Lvl 3 Diagnoses Anterior mediastinal lymphadenopathy R59.0 Night sweats R61 Pleural effusion J90 Abnormal CT of the abdomen R93.5 Pelvic abscess
--- NOTE | 2022-07-01 13:53 | Electrocardiogram Report ---
Test Reason : Blood Pressure : / mmHG Vent. Rate : 113 BPM Atrial Rate : 113 BPM P-R Int : 140 ms QRS Dur : 072 ms QT Int : 316 ms P-R-T Axes : 038 -01 036 degrees QTc Int : 433 ms Sinus tachycardia Possible Left atrial enlargement Low voltage QRS Poor R wave progression, consider anterior DE vs. lead placement vs. LVH Abnormal ECG No previous ECGs available Confirmed by Aleksandar Rodriguez ([id number]) on 07/01/2022 1:53:09 PM Referred By: REFERRED SELF Confirmed By:Aleksandar Rodriguez
--- NOTE | 2022-07-01 15:00 | Hospitalist Progress Note ---
Date of Service July 01, 2022 Assessment & Plan (1) Sepsis: Plan: - presented with tachycardia, leukocytosis to 49k with lymphocyte predominance, evidence of inflammation, LAD, pelvic abscess on imaging - concern for malignancy like lymphoma vs disseminated infection like TB or fungal infection, less likely systemic inflammatory process - lactic acidosis to >4 on presentation - CT CAP with findings of mediastinal LAD, internal mammary LAD, and mediastinitis, as well as evidence of severe peritonitis/mesenteritis concerning for infection vs neoplastic process - CT AP also noted a fluid collection in the pelvis concerning for abscess TB and fungal studies were sent - Cardiology consulted for possible ventricular impingement by LAD - no significant cardiac compression or tamponade physiology noted on echo, per Cardiology - peripheral blood smear sent - pending read for peripheral flow cytometry - started on IVF and broad spectrum abx - continue - trend lactic acid - work up started with blood cultures and urine culture pending - pulm consulted - concern for disseminated TB vs other disseminated fungal infection - surgery consulted for pelvic abscess - defer to IR for drainage - request for transfer to [facility] accepted pending bed for IR and ID evaluation - PCI tele monitoring (2) Leukocytosis: Plan: - see plan above - peripheral smear, flow cytometry - depending on results will ultimately need heme/onc evaluation - no oncologist for inpatient consults at [facility] - pending transfer to [facility] (3) Anterior mediastinal lymphadenopathy: Plan: - see plan above - transfer to [facility] for potential biopsy by IR pending (4) Pelvic abscess: Plan: - see plan above - possible IR drainage at [facility] pending transfer - abx as above - surgery recommends ultimate IR evaluation for drainage (5) Acidosis, lactic: Plan: - in the setting of disseminated infection vs malignancy - IVF on admission - trend lactic acid to clearance - broad spectrum abx (6) Shortness of breath: Plan: - likely due to systemic process and pleural effusions - tolerating RA at this time - monitor on PCU for now Plan DVT ppx: lovenox Code Status: Full Code Dispo: PCU/telemetry Nelson Schneider MD [facility] Medicine Admission and Anticipated Discharge Date Admission Date: July 01, 2022 Subjective Patient is transgender M to F s/p gender affirming surgery in 2020, HTN who presented with several weeks of fatigue, weakness, night sweats, weight loss, nausea, and shortness of breath that has been progressive. She was found to have a WBC of 49k on presentation. CT CAP with findings of mediastinal LAD, internal mammary LAD, and mediastinitis, as well as evidence of severe peritonitis/mesenteritis concerning for infection vs neoplastic process. CT AP also noted a fluid collection in the pelvis concerning for abscess. She was started on broad spectrum antibiotics. Pulmonary and Surgery were consulted. Infectious work up including TB and fungal studies were sent. Peripheral blood smear was also ordered and will need peripheral flow cytometry based on smear results. Pulmonary was concerned for disseminated infection and recommended transfer to [facility] for evaluation by IR for drainage of pelvic abscess and possible tissue biopsy of mediastinal LAD. She was accepted by Dr. Dino Menendez at [facility] pending bed availability. The patient reports shortness of breath, night sweats, fatigue, lack of sleep. She denies chest pain, vomiting, diarrhea. she does have abdominal distention and fullness but did have an appetite this morning. Review of Systems Review of Systems: All systems reviewed & are unremarkable except as noted in Subjective Physical Exam Physical Exam: GENERAL: The patient is of moderate build, not in acute distress. HEENT: Pupils equal, round, and reactive to light. Oral mucosa moist. NECK: No JVD, no neck masses. CARDIOVASCULAR: S1 and S2 heard. Regular rate and rhythm. No murmur, no gallop. RESPIRATORY SYSTEM: Normal AP diameter. No accessory muscle use. No wheezing, no crackles. decreased breath sounds in right base ABDOMEN: Soft, bowel sounds present. Somewhat stiff, nontender. MILK DRIER: Cranial nerves II-XII grossly intact, nonfocal. EXTREMITIES: Mild pedal edema present, no erythema seen. Results & Data Results & Data ([facility]) Vital Signs (Past 12 Hours) Vital Signs Temp Pulse Pulse Resp BP BP BP 07/01/22 13:13 93 H 07/01/22 13:23 36.7 C 96 H 20 126/70 07/01/22 11:49 36.6 C 104 H 16 138/81 07/01/22 07:00 88 07/01/22 09:05 07/01/22 08:43 36.5 C 95 H 16 153/84 H 07/01/22 05:15 07/01/22 05:01 36.7 C 94 H 22 150/91 H 07/01/22 04:47 94 H 18 158/97 H 07/01/22 03:00 94 H 18 158/97 H Pulse Ox O2 Del Method 07/01/22 13:13 07/01/22 13:23 98 Room Air 07/01/22 11:49 98 Room Air 07/01/22 07:00 07/01/22 09:05 Room Air 07/01/22 08:43 94 Room Air 07/01/22 05:15 Room Air 07/01/22 05:01 96 Room Air 07/01/22 04:47 95 Room Air 07/01/22 03:00 95 Room Air Laboratory Results Short CBC 06/30/22 07/01/22 Range/Units 20:45 05:18 WBC 49.63 H* 46.90 H* (4.8-10.8) K/ul Hgb 12.2 10.9 L (12.0-16.0) g/dl Hct 33.5 L 32.3 L (34.1-44.9) % Plt Count 389 337 (130-400) K/uL BMP 06/30/22 07/01/22 20:45 05:18 Sodium 135 L 135 L Potassium 4.6 4.4 Chloride 98 100 Carbon Dioxide 22 23 BUN 26 H 23 Creatinine 1.12 0.95 Glucose 85 95 Calcium 9.6 8.5 Liver Function 06/30/22 Range/Units 20:45 Total Bilirubin 0.5 (0.2-1.0) mg/dl AST 38 (13-39) U/L ALT 14 (7-52) U/L Alkaline Phosphatase 68 (34-104) U/L Albumin 3.9 (3.4-5.0) gm/dl Urine 07/01/22 Range/Units 09:21 Urine Color Yellow Urine Appearance Turbid A (Clear) Urine pH 5.0 (4.5-7.5) Ur Specific [place] 1.045 H (1.000-1.030) Urine Protein 1+ H (Negative) Urine Glucose (UA) Negative (Negative) Diagnostic Findings Chest X-Ray 06/30/22 20:45 XR chest 1V portable HISTORY: Shortness of breath. COMPARISON: None. FINDINGS: No pneumothorax. Small bilateral pleural effusions. Right basilar linear densities favor subsegmental atelectasis. No evidence for pulmonary edema. The heart is normal in size. IMPRESSION: Small bilateral pleural effusions with bibasilar linear densities suggesting subsegmental atelectasis ACT 112: Negative or not required by law. Electronically signed by: Faustino Kaiser M.D. 07/01/2022 8:05 AM Abdomen/Pelvis CT 06/30/22 22:[address] WITH IV CONTRAST CT DOSE: 1397.28 mGy.cm HISTORY: Right abd pain, WBC 49K Cr 1.1 TECHNIQUE: Multiaxial CT images of the abdomen and pelvis were performed following the use of intravenous contrast. A dose lowering technique was utilized adhering to the principles of ALARA. COMPARISON STUDY: None. FINDINGS: Please refer to same day chest CT for further evaluation of the lung bases. No pneumoperitoneum. No pneumatosis. No suspicious lytic or blastic osseous lesions. There is a right L5 pars defect. There is diffuse subcutaneous edema with skin thickening within the anterior abdominal wall. Tiny fat- containing left inguinal hernia is noted. A 7.8 cm subcutaneous lipoma within the left gluteal region. Mild bladder wall thickening. The uterus is surgically absent. Severe hepatic steatosis. No definite hepatic masses. The main portal vein is patent. The gallbladder, pancreas, spleen, and adrenal glands unremarkable. There is moderate right perinephric fat stranding/soft tissue density. There are few right perinephric soft tissue nodules with the largest measuring 16 mm. The left kidney enhances normally. No hydronephrosis. There is bilateral urothelial thickening within the renal collecting systems and ureters. Status post gastric bypass. Trace ascites. There is a small peripheral enhancing fluid collection within the mid pelvis best seen on image 415 which measures 4.7 x 1.9 cm. This could represent a small abscess. Multiple mildly thickened loops of large and small bowel seen throughout the abdomen. No dilated loops of bowel to suggest an obstruction. The appendix is identified and fills with gas. This is normal in caliber. Small collection of gas within the right side the abdomen on image 269 which is indeterminate but could be within a bowel loop. A small focus of extraluminal gas is not excluded. There are severe mesenteric fat stranding seen throughout the abdomen and pelvis. There is also mild mesenteric edema/fluid. There is thickening of the bilateral peritoneal linings. Findings suggest a severe peritonitis/mesenteritis. Elevated right hemidiaphragm. Mildly enlarged bilateral external iliac lymph nodes with the largest on the right measuring 1.5 cm. There are mildly enlarged gastrohepatic and upper retroperitoneal lymph nodes with the largest on the right measuring 2.0 cm best seen on image 201. There is also severe omental fat stranding. IMPRESSION: 1. Severe fat stranding and edema seen throughout the mesentery as well as thickening of the peritoneal linings and omentum. This could be due to a severe peritonitis/mesenteritis versus a neoplastic process. 2. There is right greater the left perinephric fat stranding with a few small right perinephric nodules as described above. Again, this could be due to a severe infectious process or possibly a neoplastic process such as lymphoma. 3. Trace ascites. There is a small area of loculated fluid within the deep pelvis measuring 4.7 x 1.9 cm. This could represent a small developing abscess. 4. Multiple areas of mild bowel wall thickening involving the large and small bowel. This could be reactive or represent a nonspecific enterocolitis. 5. Small focus of gas within the right side the abdomen which is indeterminate and could be within a loop of bowel. A small focus of extraluminal gas is not excluded. [address] follow-up recommended to ensure stability. 6. Severe hepatic steatosis. 7. Diffuse urothelial thickening within the renal collecting systems and ureters. 8. Please refer the same day chest CT for further evaluation of the lung bases. ACT 112: Negative or not required by law. Electronically signed by: Faustino Kaiser M.D. 07/01/2022 7:10 AM Chest CTA 06/30/22 22:41 CHEST CTA for PULMONARY ARTERIES CT DOSE: HISTORY: Shortness of breath. TECHNIQUE: Multiaxial CT images of the chest were performed following the intravenous administration of contrast to evaluate the pulmonary arteries. Maximal intensity projection images were also obtained. A dose lowering technique was utilized adhering to the principles of ALARA. COMPARISON STUDY: None. FINDINGS: Please refer to same day abdomen and pelvis CT for further evaluation of the abdominal structures. Normal caliber thoracic aorta with no evidence for dissection. The heart is normal in size. There are small to moderate bilateral pleural effusions. There is mediastinal lymphadenopathy. Soft tissue thickening with lymphadenopathy within the anterior mediastinum and right cardiophrenic recess. Dominant lymph node measures 3.3 cm. This results in mild mass effect along the right heart. Normal caliber esophagus. Suboptimal opacification of the pulmonary arteries due to the timing of contrast. However, no definite filling defects within the pulmonary arteries to suggest a pulmonary embolus. There are mildly enlarged bilateral internal mammary lymph nodes. Bilateral breast implants are noted. No suspicious lytic or blastic osseous lesions. There is mild elevation right hemidiaphragm. Linear density within the right lower lobe favors compressive atelectasis from the elevated right hemidiaphragm and pleural effusion. No pneumothorax. There is a punctate calcified granuloma within the left lower lobe. There is mild subsegmental atelectasis is seen within the left lower lobe. There are few punctate calcified granulomas within the right lower lobe. Partially calcified subcarinal lymph node. Mildly enlarged distal paraesophageal lymph nodes are noted. IMPRESSION: 1. No evidence for pulmonary embolus. 2. Small to moderate bilateral pleural effusions with subsegmental atelectasis within the lung bases. 3. Mediastinal lymphadenopathy and internal mammary lymphadenopathy with abnormal soft tissue density within the mediastinum resulting in mild mass effect along the right heart border. This could represent infectious mediastinitis or neoplastic process. ACT 112: Negative or not required by law. Electronically signed by: Faustino Kaiser M.D. 07/01/2022 6:57 AM Medications Administered Current Inpatient Medications Acetaminophen (Acetaminophen 325 Mg Tab) 650 mg PO Q4H PRN PRN Reason: Pain or Fever Stop: 07/31/22 04:56 Enoxaparin Sodium (Enoxaparin Inj 40 Mg/0.4 Ml Syr) 40 mg SQ Q24H [facility] Stop: 07/31/22 08:59 Last Admin: 07/01/22 07:57 Dose: 40 mg Cefepime HCl 2,000 mg/ Syringe 20 mls @ 5 mls/min IV Q12H [facility]; Protocol Stop: 07/11/22 09:59 Last Admin: 07/01/22 10:07 Dose: 5 mls/min Vancomycin HCl 1,000 mg/ (Sodium Chloride) 270 mls @ 200 mls/hr IV Q12H [facility] Stop: 07/11/22 09:59 Last Infusion: 07/01/22 13:34 Dose: Infused Lisinopril (Lisinopril 40 Mg Tab) 40 mg PO QAM [facility] Stop: 07/31/22 08:59 Last Admin: 07/01/22 07:57 Dose: 40 mg Miscellaneous Information (Vancomycin Consult Active) 1 each N/A UD PRN PRN Reason: Consult Stop: 07/30/22 22:07 Nitroglycerin (Nitroglycerin Sl 0.4 Mg/Tab Tab) 0.4 mg SL UD PRN PRN Reason: Chest Pain Stop: 07/31/22 04:56 Polyethylene Glycol (Polyethylene (Miralax) 17 Gm Pack) 17 gm PO DAILY PRN PRN Reason: Constipation Stop: 07/31/22 04:56
--- NOTE | 2022-07-01 15:45 | Surgery Consultation ---
Date of Consultation July 01, 2022 Assessment & Plan (1) Pelvic abscess: Small pelvic abscess 4.7 x 1.9 cm most likely will respond to broad-spectrum antibiotics but if persists interventional radiologist at a tertiary center can access it and drain it and obtain cultures Plan The records available were extensively reviewed prior to making this recommendation Referred to tertiary center interventional radiologist to drain the abscess and get cultures but at this time a more systemic pathology is in play that must be addressed and unlikely that the small pelvic abscess is contributing or is the cause of this generalized process History of Present Illness Attending Physician: Nelson Schneider MD History of Present Illness Reviewed from previous documentation by other practitioners Allergies Allergy/AdvReac Type Severity Reaction Status Date / Time No Known Allergies Allergy Unverified 06/30/22 23:00 Home Medications Medication Instructions Recorded Confirmed Type Estradiol Injection 100mg/5ml 0.3 ml IM WK 06/30/22 06/30/22 History ciprofloxacin HCl 500 mg tablet 500 mg PO Q12 06/30/22 06/30/22 History lisinopril 40 mg tablet 40 mg PO QAM 06/30/22 06/30/22 History ondansetron 4 mg disintegrating 4 mg PO Q6 PRN Nausea And Vomiting 06/30/22 06/30/22 History tablet Patient History Medical History (Updated 07/01/22 @ 12:12 by Sergio Jackson MD) Abnormal CT of the abdomen Anterior mediastinal lymphadenopathy Night sweats Pelvic abscess Pleural effusion Social History Smoking Status: Former smoker Second Hand Exposure: No; Do You Dip or Chew Tobacco: No; Tobacco Cessation Education Requested by Patient: No Hx Alcohol Use: Yes Hx Substance Use: No Communication Ability: Effective Biological Photographer Required: No Beliefs That Will Affect Care: None Current Living Situation: Alone Other Information That Helps Us Care for You: No Feels Safe at Home: Yes Safety Concerns: Feels Safe At This Time Assistive Devices: None Physical Exam Physical Exam: Did not physically see the patient presently she is on isolation Results & Data ([place]) Vital Signs (Past 12 Hours) Vital Signs Temp Pulse Pulse Resp BP BP BP 07/01/22 15:10 36.7 C 93 H 24 149/91 H 07/01/22 13:13 93 H 07/01/22 13:23 36.7 C 96 H 20 126/70 07/01/22 11:49 36.6 C 104 H 16 138/81 07/01/22 07:00 88 07/01/22 09:05 07/01/22 08:43 36.5 C 95 H 16 153/84 H 07/01/22 05:15 07/01/22 05:01 36.7 C 94 H 22 150/91 H 07/01/22 04:47 94 H 18 158/97 H Pulse Ox O2 Del Method 07/01/22 15:10 97 Room Air 07/01/22 13:13 07/01/22 13:23 98 Room Air 07/01/22 11:49 98 Room Air 07/01/22 07:00 07/01/22 09:05 Room Air 07/01/22 08:43 94 Room Air 07/01/22 05:15 Room Air 07/01/22 05:01 96 Room Air 07/01/22 04:47 95 Room Air PG Care Time/CCT Total # of Minutes Spent Total Time Spent with Patient: Total time spent is greater than 50% in coordination of care (as documented) at patient's floor/unit and/or counseling patient: Coding Level of Care Code 11354 Inpt Consult Level 3 Diagnoses Pelvic abscess
[2022-07-01] MEDS: metroNIDAZOLE 500 MG/100 ML BAG IV SCH (17:18)
[2022-07-01 18:08] LABS: Ferritin 59.5 ng/ml (8-388)
[2022-07-01 18:20] LABS: C Reactive Protein 9.81 mg/dl (0-0.5)
[2022-07-01] MEDS: LACTATED RINGER'S 1,000 ML IV SCH (22:36)
[2022-07-02] MEDS: metroNIDAZOLE 500 MG/100 ML BAG IV SCH ×3 (01:03→16:47)
[2022-07-02 08:08] LABS: Hematocrit (blood only) 31.8 % (34.1-44.9); Hemoglobin 10.7 g/dl (12.0-16.0); Mean Corpuscular Hemoglobin 33.5 pg (25.0-34.0); Mean Corpuscular Hgb Conc 33.6 g/dL (32.0-36.0); Mean Corpuscular Volume 99.7 fL (80.0-100.0); Mean Platelet Volume 10.2 fL (9.4-12.3); Platelet Count 354 K/uL (130-400); RDW Coefficient of Variation 17.5 % (11.5-14.5); RDW Standard Deviation 52.9 fL (36.4-46.3); Red Blood Count 3.19 M/uL (3.93-5.22); White Blood Count 46.57 K/ul (4.8-10.8)
[2022-07-02 08:11] LABS: Basophils # (auto) 0.27 K/uL (0-0.2); Basophils % (auto) 0.6 %; Eosinophils # (auto) 0.24 K/uL (0-0.50); Eosinophils % (auto) 0.5 %; Immature Granulocytes # (auto) 0.13 K/uL (0.00-0.02); Immature Granulocytes % (auto) 0.3 %; Lymphocytes # (auto) 36.38 K/uL (1.2-3.4); Lymphocytes % (auto) 78.1 %; Monocytes # (auto) 1.29 K/uL (0.24-0.82); Monocytes % (auto) 2.8 %; Neutrophils # (auto) 8.26 K/uL (1.4-6.5); Neutrophils % (auto) 17.7 %
[2022-07-02 08:13] LABS: Albumin Globulin Ratio 1.3 (0.9-2); Albumin Level 3.4 gm/dl (3.4-5.0); BUN Creatinine Ratio 23.8 (10-20); Bilirubin,Total 0.4 mg/dl (0.2-1.0); Calcium 8.5 mg/dl (8.5-10.1); Creatinine Clr Calc Pharmacy 91.2 ml/min; Est GFR (Non-African American) 79.3 ml/min; Globulin 2.7 gm/dl (2.5-4.0); Magnesium 1.9 mg/dl (1.7-2.4); Phosphorus 3.3 mg/dl (2.5-4.9); Potassium 4.8 mmol/L (3.5-5.1); Total Protein 6.1 gm/dl (6.0-8.3)
[2022-07-02] MEDS ORDERED: VANCOMYCIN LEVEL ONE (09:30)
[2022-07-02] MEDS: CEFEPIME 2,000 MG in SYRINGE 0 ML IV SCH ×2 (09:46→17:52)
[2022-07-02] MEDS: lisinopril 40 MG TAB PO SCH (09:50)
[2022-07-02] MEDS: LACTATED RINGER'S 1,000 ML IV SCH (09:51)
[2022-07-02] MEDS: ENOXAPARIN INJ 40 MG/0.4 ML SYR SQ SCH (09:51)
--- NOTE | 2022-07-02 10:48 | Pharmacy Report ---
Pharmacy PK ABX Note - Date of Service July 02, 2022 - Assessment and Plan Assessment 07/02: Level this morning indicated current regimen will not meet goal AUC. Scr has improved since admission. Will increase dosing. Patient will likely be transferred (possibly tomorrow) for IR drainage of pelvic abscess. White count remains persistently high. There is concern for malignancy vs disseminated TB vs disseminated fungal infection. 07/01: 51 year old F receiving vancomycin and cefepime empirically with possible genitourinary source. Pertinent microbiologic data includes: per provider note, recent vaginal swab that showed E. coli. Day # 1 of antimicrobial therapy. Plan Vancomycin * Vanc level 6.7 mcg/mL * Loading dose: 2000 mg IV x 1 administered today @0000 * Maintenance dose: increase to 1250 mg IV every 8 hours starting today @1100 * Regimen is predicted to achieve target AUC/CHAI of 400-600 mg/L.hr * Trough level ordered for: 07/03/22 @1030 Pharmacy will continue to follow and will adjust dose/frequency as necessary. Thank you. Pharmacy has transitioned to AUC monitoring for vancomycin. AUC/CHAI is the preferred PK/PD target and is associated with decreased risk of nephrotoxicity compared to traditional trough targets.
--- NOTE | 2022-07-02 11:14 | Hospitalist Progress Note ---
Date of Service July 02, 2022 Assessment & Plan (1) Sepsis: Plan: - presented with tachycardia, leukocytosis to 49k with lymphocyte predominance, evidence of inflammation, LAD, pelvic abscess on imaging - concern for malignancy like lymphoma vs disseminated infection like TB or fungal infection, less likely systemic inflammatory process - lactic acidosis to >4 on presentation - CT CAP with findings of mediastinal LAD, internal mammary LAD, and mediastinitis, as well as evidence of severe peritonitis/mesenteritis concerning for infection vs neoplastic process - CT AP also noted a fluid collection in the pelvis concerning for abscess TB and fungal studies were sent - Cardiology consulted for possible ventricular impingement by LAD - no significant cardiac compression or tamponade physiology noted on echo, per Cardiology - peripheral blood smear sent - pending read for peripheral flow cytometry - started on IVF and broad spectrum abx - continue - trend lactic acid - work up started with blood cultures and urine culture pending - pulm consulted - concern for disseminated TB vs other disseminated fungal infection - surgery consulted for pelvic abscess - defer to IR for drainage - request for transfer to [facility] [place] pending bed for IR and ID evaluation - PCI tele monitoring (2) Leukocytosis: Plan: - see plan above - peripheral smear, flow cytometry - depending on results will ultimately need heme/onc evaluation - no oncologist for inpatient consults at [facility] - pending transfer to [facility] (3) Anterior mediastinal lymphadenopathy: Plan: - see plan above - transfer to [facility] for potential biopsy by IR pending (4) Pelvic abscess: Plan: - see plan above - possible IR drainage at [facility] pending transfer - abx as above - surgery recommends ultimate IR evaluation for drainage (5) Acidosis, lactic: Plan: - in the setting of disseminated infection vs malignancy - IVF on admission - trend lactic acid to clearance - continues to rise - continue IVF - LDH markedly elevated - hgb, WBC, Phos stable - broad spectrum abx (6) Shortness of breath: Plan: - likely due to systemic process and pleural effusions - tolerating RA at this time - monitor on PCU for now Plan DVT ppx: lovenox Code Status: Full Code Dispo: PCU/telemetry Nelson Schneider MD [facility] Medicine Admission and Anticipated Discharge Date Admission Date: July 01, 2022 Subjective Patient is transgender M to F s/p gender affirming surgery in 2020, HTN who presented with several weeks of fatigue, weakness, night sweats, weight loss, nausea, and shortness of breath that has been progressive. She was found to have a WBC of 49k on presentation. CT CAP with findings of mediastinal LAD, internal mammary LAD, and mediastinitis, as well as evidence of severe peritoni tis/mesenteritis concerning for infection vs neoplastic process. CT AP also noted a fluid collection in the pelvis concerning for abscess. She was started on broad spectrum antibiotics. Pulmonary and Surgery were consulted. Infectious work up including TB and fungal studies were sent. Peripheral blood smear was also ordered and will need peripheral flow cytometry based on smear results. Pulmonary was concerned for disseminated infection and recommended transfer to [facility] for evaluation by IR for drainage of pelvic abscess and possible tissue biopsy of mediastinal LAD. She was accepted by Dr. Dino Menendez at [facility] pending bed availability. The patient reports shortness of breath, night sweats, fatigue, lack of sleep. She denies chest pain, vomiting, diarrhea. she does have abdominal distention and fullness but did have an appetite this morning. Review of Systems Review of Systems: All systems reviewed & are unremarkable except as noted in Subjective Physical Exam Physical Exam: GENERAL: The patient is of moderate build, not in acute distress. HEENT: Pupils equal, round, and reactive to light. Oral mucosa moist. NECK: No JVD, no neck masses. CARDIOVASCULAR: S1 and S2 heard. Regular rate and rhythm. No murmur, no gallop. RESPIRATORY SYSTEM: Normal AP diameter. No accessory muscle use. No wheezing, no crackles. decreased breath sounds in right base. conversational dyspnea ABDOMEN: Soft, bowel sounds present. Somewhat stiff, nontender. JOB COACHING: Cranial nerves II-XII grossly intact, nonfocal. EXTREMITIES: Mild pedal edema present, no erythema seen. Results & Data Results & Data ([facility]) Vital Signs (Past 12 Hours) Vital Signs Temp Pulse Pulse Resp BP BP Pulse Ox 07/02/22 08:24 36.8 C 99 H 17 122/73 95 07/02/22 07:00 92 H 07/02/22 02:55 36.6 C 101 H 22 128/77 95 O2 Del Method 07/02/22 08:24 Room Air 07/02/22 07:00 07/02/22 02:55 Room Air Laboratory Results Short CBC 07/02/22 Range/Units 07:32 WBC 46.57 H* (4.8-10.8) K/ul Hgb 10.7 L (12.0-16.0) g/dl Hct 31.8 L (34.1-44.9) % Plt Count 354 (130-400) K/uL BMP 07/02/22 07:32 Sodium 136 Potassium 4.8 Chloride 103 Carbon Dioxide 24 BUN 20 Creatinine 0.84 Glucose 95 Calcium 8.5 Liver Function 07/02/22 Range/Units 07:32 Total Bilirubin 0.4 (0.2-1.0) mg/dl AST 34 (13-39) U/L ALT 13 (7-52) U/L Alkaline Phosphatase 56 (34-104) U/L Albumin 3.4 (3.4-5.0) gm/dl Diagnostic Findings reviewed Medications Administered Current Inpatient Medications Acetaminophen (Acetaminophen 325 Mg Tab) 650 mg PO Q4H PRN PRN Reason: Pain or Fever Stop: 07/31/22 04:56 Enoxaparin Sodium (Enoxaparin Inj 40 Mg/0.4 Ml Syr) 40 mg SQ Q24H [facility] Stop: 07/31/22 08:59 Last Admin: 07/02/22 09:51 Dose: 40 mg Cefepime HCl 2,000 mg/ Syringe 20 mls @ 5 mls/min IV Q12H [facility]; Protocol Stop: 07/11/22 09:59 Last Admin: 07/02/22 09:46 Dose: 5 mls/min Metronidazole (Flagyl) 500 mg in 100 mls @ 100 mls/hr IV Q8H [facility] Stop: 07/03/22 16:59 Last Admin: 07/02/22 09:52 Dose: 100 mls/hr Vancomycin HCl 1,250 mg/ (Sodium Chloride) 275 mls @ 200 mls/hr IV Q8H [facility] Stop: 07/11/22 10:59 Sodium Chloride (Nss 1000ml) 1,000 mls @ 125 mls/hr IV .Q8H [facility] Stop: 07/03/22 03:14 Lisinopril (Lisinopril 40 Mg Tab) 40 mg PO QAM [facility] Stop: 07/31/22 08:59 Last Admin: 07/02/22 09:50 Dose: 40 mg Miscellaneous Information (Vancomycin Consult Active) 1 each N/A UD PRN PRN Reason: Consult Stop: 07/30/22 22:07 Nitroglycerin (Nitroglycerin Sl 0.4 Mg/Tab Tab) 0.4 mg SL UD PRN PRN Reason: Chest Pain Stop: 07/31/22 04:56 Polyethylene Glycol (Polyethylene (Miralax) 17 Gm Pack) 17 gm PO DAILY PRN PRN Reason: Constipation Stop: 07/31/22 04:56
[2022-07-02] MEDS: VANCOMYCIN HCL 1,250 MG in SODIUM CHLORIDE 0.9% 250 ML IV SCH ×2 (11:48→19:39)
[2022-07-02] MEDS: SODIUM CHLORIDE 0.9% 1000ML 1,000 ML IV SCH (11:53)
[2022-07-02] MEDS: VANCOMYCIN HCL 1,000 MG in SODIUM CHLORIDE 0.9% 250 ML IV SCH (12:04)
[2022-07-02] MEDS ORDERED: OPTIRAY 300 100mL IV ONE (21:14)
[2022-07-03] MEDS: metroNIDAZOLE 500 MG/100 ML BAG IV SCH ×2 (01:19→08:51)
[2022-07-03] MEDS: HYDROmorphone INJ 0.5 MG/0.5 ML SYR IV PRN ×5 (01:37→23:11)
[2022-07-03] MEDS: SODIUM CHLORIDE 0.9% 1000ML 1,000 ML IV SCH (02:40)
[2022-07-03] MEDS: VANCOMYCIN HCL 1,250 MG in SODIUM CHLORIDE 0.9% 250 ML IV SCH ×3 (03:08→18:12)
[2022-07-03] MEDS: CEFEPIME 2,000 MG in SYRINGE 0 ML IV SCH ×3 (03:08→18:12)
--- NOTE | 2022-07-03 07:48 | Pulmonology Progress Note ---
Date of Service July 03, 2022 Assessment & Plan (1) Anterior mediastinal lymphadenopathy: (2) Night sweats: (3) Pleural effusion: (4) Abnormal CT of the abdomen: Plan CT chest 06/30/2022 personally reviewed: Bilateral pleural effusion appreciated small on the left, small to moderate on the right Right lower lobe partial atelectasis with elevated right hemidiaphragm Anterior mediastinal mass 3.3 cm -- Anterior mediastinal mass with bilateral pleural effusion Unfortunately it is not amenable to bronchoscopy. Differential includes lymphoma. Unlikely to be pulmonary infectious process side as I do not see any parenchymal infiltrate Primary etiology could very well be in the abdomen. ANALIA infection cannot presents in similar way but again I would expect some pulmonary infiltrate if it is disseminated ANALIA/MAC. Plan: Patient does have fluid moderate amount of the right side. She got Lovenox today. The patient is still in the hospital tomorrow and she is agreeable to thoracentesis then I will try to perform it tomorrow. It will help with the shortness of breath which the patient is having but I do not think there will be enough cellularity to diagnose especially if you are dealing with lymphoma. Incentive spirometry will be beneficial Recommend GI consultation for possible abdominal biopsy Case was discussed with Dr. Portillo Please note the above document was generated using voice recognition software. It may contain grammatical, syntax or spelling errors.Any formal questions or concerns about the content, text or information contained within the body of this dictation should be directly addressed to the provider for clarification. Admission and Anticipated Discharge Date Admission Date: July 01, 2022 Subjective Patient seen and examined at bedside. No acute distress. No adverse events overnight. Patient states that she is having issues with breathing when she is laying flat. She does complain of abdominal bloating. No nausea or vomiting Denies any chest pain, no headache. Review of Systems Review of Systems: All systems reviewed & are unremarkable except as noted in Subjective Physical Exam Physical Exam: Constitutional: No acute distress HEENT: EOMI, PERRLA Respiratory system: Decreased air entry bilaterally, no wheeze, no rhonchi, mild crackles bilateral lower lobes CVS: S1-S2 positive, no murmurs or gallops Abdomen: Soft, nontender, nondistended, positive bowel sounds x4 Extremities: +2 pulses bilaterally radialis/ dorsalis pedis, no cyanosis, +3 pit ting edema bilateral lower extremity Neuro: Awake alert oriented x3 Psych: Normal mood and affect G/U: No Mas Skin: no rashes, warm and dry Lymphatic: no cervical or axillary lymphadenopathy Results & Data Results & Data ([facility]) Vital Signs (Past 12 Hours) Vital Signs Temp Pulse Pulse Resp BP BP Pulse Ox 07/03/22 07:00 90 07/03/22 05:28 93 H 07/03/22 04:46 36.7 C 88 20 125/82 92 07/03/22 03:17 07/02/22 22:00 07/02/22 22:58 36.7 C 94 H 24 132/81 94 O2 Del Method 07/03/22 07:00 07/03/22 05:28 07/03/22 04:46 Room Air 07/03/22 03:17 Room Air 07/02/22 22:00 Room Air 07/02/22 22:58 Room Air Laboratory Results 07/02/22 07:32 07/02/22 07:32 PG Care Time/CCT Total # of Minutes Spent Total Time Spent with Patient: Total time spent is greater than 50% in coordination of care (as documented) at patient's floor/unit and/or counseling patient: Coding Level of Care Code 46225 Subseq Hosp Care Lvl 3 Diagnoses Anterior mediastinal lymphadenopathy R59.0 Night sweats R61 Pleural effusion J90 Abnormal CT of the abdomen R93.5
[2022-07-03] MEDS: lisinopril 40 MG TAB PO SCH (08:49)
[2022-07-03] MEDS: ENOXAPARIN INJ 40 MG/0.4 ML SYR SQ SCH (08:50)
[2022-07-03 08:53] LABS: Albumin Globulin Ratio 1.3 (0.9-2); Albumin Level 3.5 gm/dl (3.4-5.0); BUN Creatinine Ratio 26.3 (10-20); Bilirubin,Total 0.5 mg/dl (0.2-1.0); C Reactive Protein 7.18 mg/dl (0-0.5); Calcium 8.4 mg/dl (8.5-10.1); Creatinine Clr Calc Pharmacy 99.3 ml/min; Est GFR (African American) 97.6 ml/min; Est GFR (Non-African American) 84.2 ml/min; Globulin 2.6 gm/dl (2.5-4.0); Magnesium 1.9 mg/dl (1.7-2.4); Phosphorus 3.6 mg/dl (2.5-4.9); Potassium 4.7 mmol/L (3.5-5.1); Total Protein 6.1 gm/dl (6.0-8.3)
--- NOTE | 2022-07-03 09:03 | CT Scan Report ---
ABDOMEN AND PELVIS CT WITH IV CONTRAST CT DOSE: 1343.63 mGy.cm HISTORY: Acute generalized abdominal pain with distention abdomnal pain and distension TECHNIQUE: Multiaxial CT images of the abdomen and pelvis were performed following the IV administrat ion of 93 cc of Optiray, A dose lowering technique was utilized adhering to the principles of ALARA. COMPARISON STUDY: CT abdomen and pelvis and CTA chest 06/30/2022 FINDINGS: Bilateral breast implants. Small to moderate pleural effusions are similar to prior. Depend ent bibasilar opacities suggest atelectasis. Right hemidiaphragmatic elevation. Mediastinal lymphaden opathy abnormal soft tissue within the mediastinum is redemonstrated. No pneumatosis or pneumoperiton eum. The spleen is normal in size. Unremarkable pancreas and visualized adrenal glands. Mildly contracted gallbladder. Hepatic steatosis. Patency of the portal vein. Urothelial thickening of the renal collec ting systems and ureters are redemonstrated. No hydronephrosis. Urinary bladder wall thickening with perivesicular stranding. Uterus appears to be surgically absent. Bilateral perinephric fat stranding with a few small right perinephric nodules are redemonstrated measuring up to approximately 2 cm. Mil dly enlarged iliac chain lymph nodes are redemonstrated measuring up to 1.6 x 1.4 cm on the left, siria ge 405. Postoperative changes of the stomach. There is no small bowel obstruction. Small abdominal pelvic asc ites. Small focus of loculated fluid within the left hemipelvis measures approximately 4.5 cm on imag e 393 which is similar to prior. Multiple areas of wall thickening again noted involving loops of bot h large and small bowel. Diffuse body wall edema. Probable lipoma the left gluteal subcutaneous tissu es measures approximately 8 cm. No acute fracture. IMPRESSION: 1. Stable exam from the study obtained 06/30/2022. 2. Small to moderate pleural effusions with bibasilar atelectasis. 3. Lymphadenopathy with soft tissue thickening within the lower chest, abdomen and pelvis redemonstra jeanette suspicious for lymphoma. Indeterminate alternative neoplastic etiology or superimposed infectious process would again be difficult to exclude. 4. Small volume of abdominal pelvic ascites with areas of small and large bowel wall thickening redem onstrated 5. Urothelial thickening with bilateral perinephric stranding and right-sided perinephric nodules. 6. No bowel obstruction. 7. 4.5 cm focus of loculated fluid within the pelvis is similar to prior suggestive of loculated asci lucho. A developing abscess considered less likely. 8. Additional findings as above. ACT 112: Negative or not required by law. The above report was generated using voice recognition software. It may contain grammatical, syntax o r spelling errors. Electronically signed by: Gagandeep Ibanez M.D. 07/03/2022 9:01 AM
[2022-07-03 09:19] LABS: Hematocrit (blood only) 33.9 % (34.1-44.9); Hemoglobin 11.2 g/dl (12.0-16.0); Mean Corpuscular Hemoglobin 32.7 pg (25.0-34.0); Mean Corpuscular Volume 99.1 fL (80.0-100.0); Mean Platelet Volume 10.2 fL (9.4-12.3); Platelet Count 300 K/uL (130-400); RDW Coefficient of Variation 16.9 % (11.5-14.5); RDW Standard Deviation 53.3 fL (36.4-46.3); Red Blood Count 3.42 M/uL (3.93-5.22); White Blood Count 48.66 K/ul (4.8-10.8)
[2022-07-03 09:41] LABS: Basophils # (auto) 0.37 K/uL (0-0.2); Basophils % (auto) 0.8 %; Eosinophils # (auto) 0.31 K/uL (0-0.50); Eosinophils % (auto) 0.6 %; Immature Granulocytes # (auto) 0.18 K/uL (0.00-0.02); Immature Granulocytes % (auto) 0.4 %; Lymphocytes # (auto) 37.28 K/uL (1.2-3.4); Lymphocytes % (auto) 76.6 %; Monocytes # (auto) 0.78 K/uL (0.24-0.82); Monocytes % (auto) 1.6 %; Neutrophils # (auto) 9.74 K/uL (1.4-6.5)
[2022-07-03] MEDS ORDERED: VANCOMYCIN LEVEL ONE (10:30)
--- NOTE | 2022-07-03 13:13 | Pharmacy Report ---
Pharmacy PK ABX Note - Date of Service July 03, 2022 - Assessment and Plan Assessment 07/03: Blood cultures show no growth at 48 hours. Continuing antibiotics at this time, awaiting drainage of pelvic abscesses. 07/02: Level this morning indicated current regimen will not meet goal AUC. Scr has improved since admission. Will increase dosing. Patient will likely be transferred (possibly tomorrow) for IR drainage of pelvic abscess. White count remains persistently high. There is concern for malignancy vs disseminated TB vs disseminated fungal infection. 07/01: 51 year old F receiving vancomycin and cefepime empirically with possible genitourinary source. Pertinent microbiologic data includes: per provider note, recent vaginal swab that showed E. coli. Day # 1 of antimicrobial therapy. Plan Vancomycin * Current regimen: 1250 mg IV every 8 hours * Trough level obtained 07/03/22 resulted as 14.4 mcg/mL. This is predicted to achieve target AUC/CHAI of 400-600 mg/L.hr * Predicted AUC at steady state: 523 mg/L.hr * Continue 1250 mg IV every 8 hours * Will repeat level in the next 48-72 hours if therapy is continued and/or change in patient clinical status Cefepime * 2 g IV q8h - no change Metronidazole * 500 mg IV q8h - no change Pharmacy will continue to follow and will adjust dose/frequency as necessary. Thank you. Pharmacy has transitioned to AUC monitoring for vancomycin. AUC/CHAI is the preferred PK/PD target and is associated with decreased risk of nephrotoxicity compared to traditional trough targets.
--- NOTE | 2022-07-03 15:57 | Procedure Note ---
Procedure Note Date of Service July 03, 2022 Note Bedside Ultrasound: Lung:- Right: Moderate right-sided pleural effusion with right lower lobe atelectasis. Larger fluid pocket appreciated posteriorly Left: Small left-sided pleural effusion with B-lines posteriorly Please note the above document was generated using voice recognition software. It may contain grammatical, syntax or spelling errors.Any formal questions or concerns about the content, text or information contained within the body of this dictation should be directly addressed to the provider for clarification. Coding CPT Codes Pulmonary/Thoracic - Pulmonary and Thoracic: 39147 US, Chest, real time with imaging documentation ([id number]) [facility] [place] Codes ([place]) Pulmonary/Thoracic Procedure 1: Pulmonary and Thoracic: 44871 US, Chest, real time with imaging documentation
[2022-07-03 16:16] LABS: Reticulocyte % 2.2 % (0.5-2.0); Reticulocytes # 0.07 10^6/uL (0.02-0.10)
--- NOTE | 2022-07-03 18:25 | Hospitalist Progress Note ---
Date of Service July 03, 2022 Assessment & Plan (1) Anterior mediastinal lymphadenopathy: Plan (1) Sepsis: Plan: - presented with tachycardia, leukocytosis to 49k with lymphocyte predominance, evidence of inflammation, LAD, pelvic abscess on imaging - concern for malignancy like lymphoma vs disseminated infection like TB or fungal infection, less likely systemic inflammatory process - lactic acidosis to >4 on presentation - CT CAP with findings of mediastinal LAD, internal mammary LAD, and mediastinitis, as well as evidence of severe peritonitis/mesenteritis concerning for infection vs neoplastic process - CT AP also noted a fluid collection in the pelvis concerning for abscess - TB and fungal studies were sent - Cardiology consulted for possible ventricular impingement by LAD - no significant cardiac compression or tamponade physiology noted on echo, per Cardiology 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 So - concern for aggressive lymphoma with need for inpatient oncology evaluation/IR biopsy/possible inpatient treatment initiation given elevated LDH, recommends transfer to tertiary center, communicated with oncologist at [facility], accepted. -Patient on IV antibiotic for likely sepsis, continue with same. 06/30 blood culture with no growth till date. -Pulmonology evaluating for concern of disseminated TB versus other disseminated fungal infection. Discussed with pulm, will hold Lovenox, eval for likely thoracentesis tomorrow. -Surgery consulted for pelvic abscess, defer to IR for drainage. Requested transfer to [facility] for which patient was accepted and then IR at [place] deemed it not amenable to IR drainage per Dr. Torres over transfer line.. (2) Leukocytosis: Plan: - see plan above - peripheral smear, flow cytometry, likely lymphoma, discussed with oncology, see above. - pending transfer to [facility] (3) Anterior mediastinal lymphadenopathy: Plan: - see plan above - transfer to [facility] for potential biopsy by IR pending (4) Pelvic abscess: Plan: - see plan above - possible IR drainage at [facility] pending transfer - abx as above - surgery recommends ultimate IR evaluation for drainage (5) Acidosis, lactic: Plan: - in the setting of disseminated infection vs malignancy - IVF on admission - trend lactic acid to clearance - continues elevated - continue IVF - LDH markedly elevated - hgb, WBC, Phos stable - broad spectrum abx (6) Shortness of breath: Plan: - likely due to systemic process and pleural effusions - tolerating RA at this time - monitor on PCU for now - PUlm to eval for likely thoracentesis jane. Plan DVT ppx: lovenox on hold Code Status: Full Code Dispo: PCU/telemetry; pending transfer to [place]. Admission and Anticipated Discharge Date Admission Date: July 01, 2022 Subjective Patient seen and examined at bedside as a follow-up of concern of sepsis and possible pelvic abscess, possible lymphoma and anterior mediastinal lymphadenopathy. Patient was sitting up in bed, on room air, NAD, denies acute event overnight, reports decreased appetite, reports dry cough and dizziness both of which are getting better, continues to have orthopnea, denies headache, other review of symptoms negative. Physical Exam Physical Exam: GENERAL: Alert and oriented x3. NAD, on RA. HEENT: No pallor, no icterus. Pupils equal, round and reactive to light. Oral mucosa moist. NECK: No JVD, no neck masses. HEART: S1 and S2 heard. Regular rate and rhythm. No murmur, no gallop. RESPIRATORY SYSTEM: Normal AP diameter. No accessory muscle use. No wheezing, no crackles. ABDOMEN: Soft, bowel sounds present, nontender, no distention. Healed surgical scar. CENTRAL NERVOUS SYSTEM: No facial droop. Speech is clear. Obeys simple commands. Moves extremities. EXTREMITIES: 2+ ble edema, no erythema seen. Results & Data Results & Data ([facility]) Vital Signs (Past 12 Hours) Vital Signs Temp Pulse Pulse Resp BP Pulse Ox O2 Del Method 07/03/22 15:42 96 H 07/03/22 11:48 36.7 C 84 20 120/76 94 Room Air 07/03/22 09:35 Room Air 07/03/22 08:48 94 H 116/70 07/03/22 07:43 36.6 C 87 17 133/81 94 Room Air 07/03/22 07:00 90
[2022-07-04] MEDS: HYDROmorphone INJ 0.5 MG/0.5 ML SYR IV PRN ×2 (03:28→07:58)
[2022-07-04] MEDS: VANCOMYCIN HCL 1,250 MG in SODIUM CHLORIDE 0.9% 250 ML IV SCH (03:29)
[2022-07-04] MEDS: CEFEPIME 2,000 MG in SYRINGE 0 ML IV SCH (03:30)
[2022-07-04] MEDS: lisinopril 40 MG TAB PO SCH (07:58)
[2022-07-04 08:02] LABS: BUN Creatinine Ratio 24.8 (10-20); Calcium 8.8 mg/dl (8.5-10.1); Creatinine Clr Calc Pharmacy 79.1 ml/min; Est GFR (African American) 73.6 ml/min; Est GFR (Non-African American) 63.5 ml/min; Magnesium 2.1 mg/dl (1.7-2.4); Phosphorus 4.1 mg/dl (2.5-4.9); Potassium 4.9 mmol/L (3.5-5.1)
[2022-07-04 08:08] LABS: Hematocrit (blood only) 33.8 % (34.1-44.9); Hemoglobin 10.9 g/dl (12.0-16.0); Mean Corpuscular Hemoglobin 31.7 pg (25.0-34.0); Mean Corpuscular Hgb Conc 32.2 g/dL (32.0-36.0); Mean Corpuscular Volume 98.3 fL (80.0-100.0); Platelet Count 386 K/uL (130-400); RDW Standard Deviation 55.5 fL (36.4-46.3); Red Blood Count 3.44 M/uL (3.93-5.22); White Blood Count 49.77 K/ul (4.8-10.8)
--- NOTE | 2022-07-04 09:13 | Pulmonology Progress Note ---
Date of Service July 04, 2022 Assessment & Plan (1) Anterior mediastinal lymphadenopathy: (2) Night sweats: (3) Pleural effusion: (4) Abnormal CT of the abdomen: Plan CT chest 06/30/2022 personally reviewed: Bilateral pleural effusion appreciated small on the left, small to moderate on the right Right lower lobe partial atelectasis with elevated right hemidiaphragm Anterior mediastinal mass 3.3 cm -- Anterior mediastinal mass with bilateral pleural effusion Unfortunately it is not amenable to bronchoscopy. Differential includes and what he likely is lymphoma. Unlikely to be pulmonary infectious process side as I do not see any parenchymal infiltrate Primary etiology could very well be in the abdomen. ANALIA infection cannot presents in similar way but again I would expect some pulmonary infiltrate if it is disseminated ANALIA/MAC. Plan: Patient is supposed to be transferred today to [place] around 9-9:30 AM. Will defer thoracentesis as the patient is being transferred Continue with diuretics to keep the patient negative balance Incentive spirometry will be beneficial Follow-up Gold QuantiFERON Please note the above document was generated using voice recognition software. It may contain grammatical, syntax or spelling errors.Any formal questions or c oncerns about the content, text or information contained within the body of this dictation should be directly addressed to the provider for clarification. Admission and Anticipated Discharge Date Admission Date: July 01, 2022 Subjective Patient seen and examined at bedside. No acute distress, no delusions overnight. Still complain of shortness of breath specially when she is lying on her back. Feels tight in the belly. No nausea or vomiting No headache, no blurry vision Has been urinating well. Review of Systems Review of Systems: All systems reviewed & are unremarkable except as noted in Subjective Physical Exam Physical Exam: Constitutional: No acute distress HEENT: EOMI, PERRLA Respiratory system: Decreased air entry bilaterally, more decreased on the right side, no wheeze, no rhonchi, mild crackles bilateral lower lobes CVS: S1-S2 positive, no murmurs or gallops Abdomen: Soft, nontender, nondistended, positive bowel sounds x4 Extremities: +2 pulses bilaterally radialis/ dorsalis pedis, no cyanosis, +3 pitting edema bilateral lower extremity Neuro: Awake alert oriented x3 Psych: Normal mood and affect G/U: No Mas Skin: no rashes, warm and dry Lymphatic: no cervical or axillary lymphadenopathy Results & Data Results & Data ([facility]) Vital Signs (Past 12 Hours) Vital Signs Temp Pulse Pulse Resp BP BP Pulse Ox 07/04/22 08:57 36.5 C 88 22 128/78 132/81 96 07/04/22 07:41 36.5 C 88 22 128/78 96 07/04/22 04:58 99 H 07/04/22 03:54 36.6 C 88 18 122/76 95 07/03/22 21:42 36.7 C 92 H 24 122/75 95 O2 Del Method 07/04/22 08:57 07/04/22 07:41 Room Air 07/04/22 04:58 07/04/22 03:54 07/03/22 21:42 Room Air Laboratory Results 07/04/22 07:24 07/04/22 07:24 PG Care Time/CCT Total # of Minutes Spent Total Time Spent with Patient: Total time spent is greater than 50% in coordination of care (as documented) at patient's floor/unit and/or counseling patient: Coding Level of Care Code 10578 Subseq Hosp Care Lvl 2 Diagnoses Anterior mediastinal lymphadenopathy R59.0 Night sweats R61 Pleural effusion J90 Abnormal CT of the abdomen R93.5
[2022-07-04 11:01] LABS: Quantiferon Mitogen-NIL >10.00 IU/mL; Quantiferon NIL 0.03 IU/mL; Quantiferon TB Gold Plus NEGATIVE (NEGATIVE)
--- NOTE | 2022-07-04 11:59 | Discharge Summary ---
Date of Service July 04, 2022 Admission HPI Per Admitting Provider DATE OF ADMISSION: 07/01/2022. CHIEF COMPLAINT: Dizziness, weakness. HISTORY OF PRESENT ILLNESS: A 51-year-old transgender male to female status post breast implants and vaginoplasty about a year ago, history of hypertension, who comes because of not feeling well, fatigued, weak, dizziness, nausea, shortness of breath going on for a couple of weeks, progressively getting worse, so she came here. She is hemodynamically stable. White count is 49. She follows at [facility]. Seems recent white count was 17. They did a vaginal swab which showed E. coli and was treated with antibiotics. She says she did not finish the course and looks like she is on Cipro. As she is not feeling well, she came here. Chest x-ray shows possible raised diaphragm on the right side. The patient is resting comfortably. She was able to speak in full sentence, but she complains of shortness of breath. She says she can walk about half a block. She has some swelling in the legs. Denies any headache, occasionally has neck pain. No blurred visions, no earache, no runny nose, no sore throat, no cough, no difficulty swallowing. Her appetite is down last few days. Denies any chest pain. Has nausea. No vomiting. After eating only a small amount of food, she feels full. Denies any abdominal pain. Somewhat constipated. No blood in the stools or black stools. Micturating okay. ALLERGIES: No known drug allergies. PAST MEDICAL HISTORY: As mentioned above. PAST SURGICAL HISTORY: Breast implants, vaginoplasty, tummy tuck. MEDICATIONS: The patient is on Cipro 500 mg p.o. b.i.d., estradiol injection IM weekly, lisinopril 40 mg p.o. daily, Zofran 4 mg p.o. q. 6 hours p.r.n. FAMILY HISTORY: Significant for mother has CHF. SOCIAL HISTORY: Remote history of smoking. Alcohol, drinks 3 times a week. No drug use. REVIEW OF SYSTEMS: As per HPI. Rest of the review of systems is negative. Admission Exam Per Admitting Provider GENERAL: The patient is of moderate build, not in acute distress. VITAL SIGNS: Temperature 36.6, pulse 94, respiratory rate 16, blood pressure 151/92, oxygen 96% on room air. HEENT: Pupils equal, round, and reactive to light. Oral mucosa moist. NECK: No JVD, no neck masses. CARDIOVASCULAR: S1 and S2 heard. Regular rate and rhythm. No murmur, no gallop. RESPIRATORY SYSTEM: Normal AP diameter. No accessory muscle use. No wheezing, no crackles. ABDOMEN: Soft, bowel sounds present. Somewhat stiff, nontender. RESOURCE AGENT: Cranial nerves II-XII grossly intact, nonfocal. EXTREMITIES: Mild pedal edema present, no erythema seen. Principal Diagnosis Likely lymphoma elevated lactic acid concer for pelvic abscess likely sepsis Discharge Exam GENERAL: Alert and oriented x3. NAD, on RA. HEENT: No pallor, no icterus. Pupils equal, round and reactive to light. Oral mucosa moist. NECK: No JVD, no neck masses. HEART: S1 and S2 heard. Regular rate and rhythm. No murmur, no gallop. RESPIRATORY SYSTEM: Normal AP diameter. No accessory muscle use. No wheezing, no crackles. ABDOMEN: Soft, bowel sounds present, nontender, no distention. Healed surgical scar. CENTRAL NERVOUS SYSTEM: No facial droop. Speech is clear. Obeys simple commands. Moves extremities. EXTREMITIES: 2+ ble edema, no erythema seen. Discharge Data Allergies Allergy/AdvReac Type Severity Reaction Status Date / Time No Known Allergies Allergy Unverified 06/30/22 23:00 Consultations 07/01/22 01:02 ED Decision to Admit Stat 07/01/22 07:05 Consult Cardiology Routine Consult Pulmonology Routine 07/01/22 11:48 Consult General Surgery Routine 07/01/22 15:57 Burn CD for patient Routine 07/03/22 13:59 Consult Oncology Routine Ordered Studies 06/30/22 22:41 CT Abd and Pelvis [CT abd pelvis IV con only] Urgent CT for pulmonary embolism PE [CT angio chest PE protocol] Urgent 07/02/22 19:26 CT Abd and Pelvis [CT abd pelvis IV con only] Urgent 07/03/22 07:51 US point of care ultrasound Urgent Hospital Course (1) Anterior mediastinal lymphadenopathy: Plan (1) Sepsis: Plan: - presented with tachycardia, leukocytosis to 49k with lymphocyte predominance, evidence of inflammation, LAD, pelvic abscess on imaging - concern for malignancy like lymphoma vs disseminated infection like TB or fungal infection, less likely systemic inflammatory process - lactic acidosis to >4 on presentation - CT CAP with findings of mediastinal LAD, internal mammary LAD, and mediastinitis, as well as evidence of severe peritonitis/mesenteritis concerning for infection vs neoplastic process - CT AP also noted a fluid collection in the pelvis concerning for abscess - TB and fungal studies were sent - Cardiology consulted for possible ventricular impingement by LAD - no si gnificant cardiac compression or tamponade physiology noted on echo, per Cardiology - peripheral blood smear sent - concern for lymphoma, flow cytometry sent 07/03, consulted Onc, d/w Dr. So 07/03 - concern for aggressive lymphoma with need for inpatient oncology evaluation/IR biopsy/possible inpatient treatment initiation given elevated LDH, recommends transfer to tertiary center, being transferred to [facility]. -Patient on IV antibiotic for likely sepsis, continue with same. 06/30 blood culture with no growth till date. -Pulmonology evaluating for concern of disseminated TB versus other disseminated fungal infection. Discussed with pulm, will hold Lovenox, eval for likely thoracentesis tomorrow. -Surgery consulted for pelvic abscess, defer to IR for drainage. Requested fortune sfer to [facility] for which patient was accepted and then IR at [facility] deemed it not amenable to IR drainage per Dr. Torres over transfer line. (2) Leukocytosis: Plan: - see plan above - peripheral smear, flow cytometry, likely lymphoma, discussed with oncology, see above. - Being transferred to [facility] (3) Anterior mediastinal lymphadenopathy: Plan: - see plan above - transfer to [facility] for potential biopsy by IR (4) Pelvic abscess: Plan: - see plan above - possible IR drainage at [facility] pending transfer - abx as above - surgery recommends ultimate IR evaluation for drainage (5) Acidosis, lactic: Plan: - in the setting of disseminated infection vs malignancy - IVF on admission - trend lactic acid to clearance - continues elevated - likely 2/2 malignancy, ivf held d/t vol overload. - LDH markedly elevated - hgb, WBC, Phos stable - broad spectrum abx (6) Shortness of breath: Plan: - likely due to systemic process and pleural effusions - tolerating RA at this time - monitor on PCU for now - likley will need thoracentesis Plan DVT ppx: lovenox on hold for likely thoracentesis today. Code Status: Full Code Dispo: PCU/telemetry; being transfer to [facility]. Total Time Total Time Spent Total Time Spent (In Minutes): 35 Discharge Plan Discharge Items Patient Disposition: Transfer Acute Care Hospital Reason For Visit: SOB, DIZZY Discharge Diagnosis: sepsis Health Concerns: Current Inpatient Medications Acetaminophen (Acetaminophen 325 Mg Tab) 650 mg PO Q4H PRN PRN Reason: Pain or Fever Stop: 07/31/22 04:56 Enoxaparin Sodium (Enoxaparin Inj 40 Mg/0.4 Ml Syr) 40 mg SQ Q24H [facility] Stop: 07/31/22 08:59 Last Admin: 07/01/22 07:57 Dose: 40 mg Cefepime HCl 2,000 mg/ Syringe 20 mls @ 5 mls/min IV Q12H [facility]; Protocol Stop: 07/11/22 09:59 Last Admin: 07/01/22 10:07 Dose: 5 mls/min Vancomycin HCl 1,000 mg/ (Sodium Chloride) 270 mls @ 200 mls/hr IV Q12H [facility] Stop: 07/11/22 09:59 Last Infusion: 07/01/22 13:34 Dose: Infused Metronidazole (Flagyl) 500 mg in 100 mls @ 100 mls/hr IV Q8H [facility] Stop: 07/03/22 16:29 Lisinopril (Lisinopril 40 Mg Tab) 40 mg PO QAM [facility] Stop: 07/31/22 08:59 Last Admin: 07/01/22 07:57 Dose: 40 mg Miscellaneous Information (Vancomycin Consult Active) 1 each N/A UD PRN PRN Reason: Consult Stop: 07/30/22 22:07 Nitroglycerin (Nitroglycerin Sl 0.4 Mg/Tab Tab) 0.4 mg SL UD PRN PRN Reason: Chest Pain Stop: 07/31/22 04:56 Polyethylene Glycol (Polyethylene (Miralax) 17 Gm Pack) 17 gm PO DAILY PRN PRN Reason: Constipation Stop: 07/31/22 04:56 Activity: As commented below Activity Comment: as per accepting facility Non-emergency contact: Primary Care Provider and Specialist Call non-emergency contact if: you have any medication questions and your symptoms worsen Follow-up/Referrals: PCP,NO [Primary Care Provider] - Diet: Heart Healthy Addtl Attending Provider Instructions: You were admitted for concerns for sepsis and elevated white blood cell count to 49k. You had imaging evidence of enlarged lymph nodes in your chest and inflammation in your chest as well in your abdomen with a fluid collection in your pelvis concerning for an abscess. You were started on antibiotics and IV fluids. Pulmonary physician was consulted and sent tests for fungal infection and Tubercuosis infection. Surgery saw you for the pelvic abscess. It was recommended that you be transferred to [facility] in [place], [place] for evaluation by interventional radiology to drain the abscess and possible get a tissue biopsy of one of the enlarged lymph nodes in the chest. You will also benefit from an in person infectious diseases and heme/onc consult. You were accepted to transfer to [facility]. Pending Studies at Discharge: Yes Studies:: fungal and TB studies, blood and urine cultures Stand-Alone Forms: My [facility] Skilled Items Patient informed of condition?: Yes DNR: No Discharge Level of Care: Other Communicable Disease: Yes Discharge Prognosis: Stable Lines: Peripheral IV Urinary Catheter: No Medications and DC Order Prescriptions: Continued lisinopril 40 mg Tablet 40 mg PO QAM ondansetron 4 mg tablet,disintegrating 4 mg PO Q6 PRN (Reason: Nausea And Vomiting) Estradiol Injection 100mg/5ml 0.3 ml IM WK Discontinued ciprofloxacin HCl 500 mg tablet 500 mg PO Q12 Rx Instructions: ordered 06/20/22 take for 10 days Discharge Orders: Discharge Order (Routine); Ordered 07/01/22 Ordered By: Nelson Schneider Admission Data Admit Date/Time: 07/01/22 02:06 Attending Provider: Preston Portillo Admit Provider: Cornel Chavis Primary Care Provider: PCP,NO Other Providers: Cornel Chavis ; Cornelius Hicks Vyacheslav ; Nabeel Stevens ; Luis Angel Diaz ; Deonte Martinez ; Gerard Watson Jr ; Scot Malin ; Juan Carlos Calle ; Nely Willis ; Mike Rodriguez ; Vazquez Rizo ; Funmilayo So Other Interventions: Discharge Summary Assessment (RN) Last Done: 07/04/22 09:46
[2022-07-04] MEDS ORDERED: VANCOMYCIN HCL 1,000 MG in SODIUM CHLORIDE 0.9% 250 ML IV SCH (12:00)
== END 2022-07-04 09:40 | disposition short-term general hospital (02) | DRG 871 ==
LOC: ED 20:30 → 4W 07-01 02:06 → SUATTDRO 07-01 02:06 → 4W 07-01 04:47 → 2S 07-01 13:17
DX: I10 Essential (primary) hypertension; A18.83 Tuberculosis of digestive tract organs, not elsewhere classified; J90 Pleural effusion, not elsewhere classified; Z87.890 Personal history of sex reassignment; Z79.899 Other long term (current) drug therapy; A19.9 Miliary tuberculosis, unspecified; C85.90 Non-Hodgkin lymphoma, unspecified, unspecified site; Z98.82 Breast implant status; Z79.890 Hormone replacement therapy; K65.1 Peritoneal abscess; J98.51 Mediastinitis; B49 Unspecified mycosis; A41.89 Other specified sepsis; E87.2 Acidosis; E83.42 Hypomagnesemia; Z87.891 Personal history of nicotine dependence